=== PATIENT | female | born 1970 | race Caucasian/White ===

== ENCOUNTER 2019-04-14 09:03 | Outpatient (CLI) | payer BC, MEDICARE, SELFPAY ==
--- NOTE | ~2019-04-14 | MM_ITS ---
EXAMINATION: MM screening reid BI w benito HISTORY: Screening mammogram TECHNIQUE: Craniocaudal and mediolateral oblique 3-D tomosynthesis images were obtained and synthetic 2-D images were generated. CAD analysis was submitted and interpreted. COMPARISON: No prior mammogram is available for comparison at this institution. BREAST PARENCHYMAL COMPOSITION: The breasts are almost entirely fatty. FINDINGS: There is no evidence of suspicious mass, calcification, or architectural distortion to sugg est malignancy in either breast. IMPRESSION: 1. No mammographic evidence of malignancy. 2. Recommend routine screening mammography in one year. BI-RADS Category 1: Negative Reviewed, dictated and finalized at location A. TER SKI EDGE
== END 2019-04-14 09:04 | disposition home or self-care (01) ==
PROVIDERS: PCP Internal Medicine; Visit Provider Obstetrics & Gynecology
DX: Z12.31 Encounter for screening mammogram for malignant neoplasm of breast (principal)
CPT/HCPCS: 77063; 77067

== ENCOUNTER 2021-04-05 12:24 | Outpatient (CLI) | payer BC, MEDICARE, SELFPAY ==
--- NOTE | 2021-04-05 | ECHO_ITS ---
Patient Info Name: Luiza Sumner Age: 50 years : 1970 Gender: Female Ht: 62 in Wt: 375 lbs BSA: 2.86 m2 HR: 78 bpm BP: 142 / 90 mmHg Heart Rhythm: Sinus Rhythm Technical Quality: Poor, Fair Exam Date: 04/05/2021 1:09 PM Exam Location: [facility] Patient Status: Outpatient Admit Date: 04/05/2021 Staff Ordering Physician: Daniella, Betsy LOWE [employer] Boiler: Christi Reynoso RDCS Attending Provider: Daniella, Betsy LOWE Exam Type: CA echo doppler color flow Study Info Indications R06.09 - Other forms of dyspnea Complete two-dimensional, color flow and Doppler transthoracic echocardiogram is performed. Strain analysis performed. Summary 1. Complete two-dimensional, color flow and Doppler transthoracic echocardiogram is performed. 2. Strain analysis performed. 3. Left ventricular chamber dimension is normal. 4. Left ventricular systolic function is normal, estimated at 65-70%. 5. There is mildly increased left ventricular wall thickness. 6. The left ventricular diastolic function is grade II diastolic dysfunction. 7. Global longitudinal strain is abnormal at -15 %. 8. Left atrial chamber dimension is mildly enlarged. 9. There is mild mitral valve regurgitation. 10. There is mild tricuspid valve regurgitation. 11. Mild pulmonary hypertension, estimated pulmonary arterial systolic pressure is 44 mmHg. Left Ventricle Left ventricular chamber dimension is normal. Left ventricular systolic function is normal, estimated at 65-70%. There is mildly increased left ventricular wall thickness. The left ventricular diastolic function is grade II diastolic dysfunction. Global longitudinal strain is abnormal at -15 %. Right Ventricle Right ventricular chamber dimension is normal. Right ventricular systolic function is normal. Left Atria Left atrial chamber dimension is mildly enlarged. Right Atria Right atrial chamber dimension is normal. Atrial Septum Intact interatrial septum visualized by color flow imaging. Aortic Valve The aortic valve is probable trileaflet. There is no aortic valve stenosis. There is trace aortic valve regurgitation. Pulmonic Valve The pulmonic valve is normal. There is no pulmonic valve stenosis. There is trace pulmonic regurgitation. Mitral Valve The mitral valve has normal leaflets. There is no mitral valve stenosis. There is mild mitral valve regurgitation. Tricuspid Valve The tricuspid valve leaflets are normal. There is no significant tricuspid valve stenosis. There is mild tricuspid valve regurgitation. Mild pulmonary hypertension, estimated pulmonary arterial systolic pressure is 44 mmHg. Pericardium/Pleural The pericardium appears normal. There is no pericardial effusion. Inferior Vena Cava Normal inferior vena cava with >50% collapse upon inspiration consistent with normal right atrial pressure, 10 mmHg. Aorta The aortic root size at the sinus of Valsalva is normal. Left Ventricular Outflow Tract Name Value Normal LVOT 2D LVOT Diameter 1.9 cm LVOT Doppler LVOT Peak Gradient 6 mmHg
--- NOTE | 2021-04-05 14:32 | PCRCNOTE ---
PT DECLINED 6 MINUTE WALK, DR MARRERO'S OFFICE NOTIFIED.
--- NOTE | 2021-04-05 17:08 | WPDPFTINT ---
PFT Procedure Performed PFT Procedure Performed Spirometry with Pre/Post Bronchodilator Plethysmography (Lung Vol) Diffusing Cap (DLCO) Flow Vol Loop PFT Interpretation This is a pulmonary function test with pre and post-bronchodilator spirometry, plethysmography and diffusing capacity. The test was performed and results interpreted in accordance with the 2019 and 2005 ATS/ERS Task Force guidelines respectively using the Global Lung Function Initiative-2012 reference equations. Patient demonstrated good effort and cooperation. Reproducibility criteria were met. The quality of the pre bronchodilator spirometry maneuver was Grade A and post bronchodilator spirometry maneuver was Grade A. Findings: Spirometry: The contour the inspiratory and expiratory flow tracing are normal. The pre bronchodilator FVC is 2.48 L, 79% predicted. The pre bronchodilator FEV1 is 1.85 L, 73% predicted. The FEV1: FVC ratio 75%. The post bronchodilator FVC is 2.56 L, representing 3% increase. The post bronchodilator FEV1 is 1.91 L, representing a 3% increase. The post bronchodilator FEV1: FVC ratio 75%. Plethysmography: The total lung capacity is 3.49 L, 74% predicted. Functional residual capacity is 1.66 L, 63% predicted. The residual volume is 1.02 L, 59% predicted. Diffusing capacity: The diffusing capacity unadjusted for hemoglobin is 17.7, 82% predicted. The diffusing capacity adjusted for alveolar volume is 5.21, 112% predicted. Impression: There is a mild restrictive ventilatory abnormality. The spirometry is normal without evidence of an obstructive abnormality. There is no significant improvement after inhaling a single dose of albuterol. The diffusing capacity is normal. There are no prior studies for comparison
== END 2021-04-05 12:25 | disposition home or self-care (01) ==
PROVIDERS: PCP Internal Medicine; Visit Provider Nurse Practitioner
DX: J45.909 Unspecified asthma, uncomplicated (principal); R06.09 Other forms of dyspnea; I34.0 Nonrheumatic mitral (valve) insufficiency; I36.1 Nonrheumatic tricuspid (valve) insufficiency
CPT/HCPCS: 93306; 94060; 94726; 94729

== ENCOUNTER 2021-08-23 10:50 | Emergency (ER) | payer BC, MEDICARE, SELFPAY ==
--- NOTE | ~2021-08-23 | XR_ITS ---
XR knee RT min 4V 08/23/2021 11:19 Indication: Right knee pain Procedure: 4 views right knee Comparison: No prior studies for comparison. Findings: There is moderate-severe tricompartment osteoarthritis of the right knee. No fracture or tr aumatic malalignment. No significant joint effusion. No foreign bodies. Impression: 1: No acute fracture. 2: Moderate-severe tricompartment osteoarthritis. Reviewed, dictated and finalized at location A. Impression: 1: No acute fracture. 2: Moderate-severe tricompartment osteoarthritis.
[2021-08-23 10:53] VITALS: BP 146/62; PULSE 94; RESP 20; TEMP 36.6; O2SAT 97
--- NOTE | 2021-08-23 11:10 | PC.NURSE ---
Patient off unit to Radiology
--- NOTE | 2021-08-23 12:00 | PC.NURSE ---
EDP at bedside to assess pt.
--- NOTE | 2021-08-23 12:15 | ED.LOWEXIN ---
HPI - Extremity Injury (Lower) General Chief Complaint: Extremity Injury, Lower Stated Complaint: right knee pain Time Seen by Provider: 08/23/21 11:19 History of Present Illness HPI Narrative: 50-year-old female presents to the emergency room with right knee pain. Patient states that she has been experiencing a stinging sensation to the outside of her left knee. Patient states the pain started when she was in the pool. Pain is aggravated by ambulation and palpation. Patient believes that she may have twisted her knee at some point. States Tylenol and ibuprofen and gabapentin are not alleviating her symptoms. Related Data Allergies Allergy/AdvReac Type Severity Reaction Status Date / Time lisinopril Allergy Mild Cough Verified 08/23/21 12:11 Penicillins Allergy Mild Hives / Unverified 08/23/21 12:11 Red Face Review of Systems Review of Systems: CONSTITUTIONAL: Denies fever, chills, or sweats. EYES: Denies visual changes, redness, or discharge. ENT: Denies rhinorrhea, congestion, sore throat, or otalgia. CARDIOVASCULAR: Denies chest pain, palpitations, or edema. RESPIRATORY: Denies cough or dyspnea. GASTROINTESTINAL: Denies abdominal pain, nausea, vomiting, or diarrhea. GENITOURINARY: Denies dysuria or hematuria. SKIN: Denies rash or itching. MUSCULOSKELETAL: Reports right knee pain NEUROLOGIC: Denies headache, numbness, dizziness, or weakness. PSYCHIATRIC: Denies anxiety or depression. Exam Narrative: GENERAL: Well-appearing, well-nourished, no physical limitations, and in no acute distress. HEAD: Normocephalic, atraumatic. EYES: Conjunctivae normal, PERRLA and EOMI. CHEST: Clear to auscultation. No respiratory distress. No wheezes rales or rhonchi. No tenderness. HEART: Regular rate and rhythm. No murmur heard. Normal peripheral pulses. ABDOMEN: Soft, nontender, morbidly obese, normal active bowel sounds. : Normal external male/female exam. BACK: No CVA tenderness; No cervical/thoracic/lumbar tenderness, step-offs, bony abnormality; FROM EXTREMITIES: Right knee: No obvious bony abnormality, no patellar tracking, full range of motion, no joint laxity, Mikie's test is negative, tenderness to the lateral surface with no obvious soft tissue swelling SKIN: Warm, dry, no rash. No noted wounds NEURO: No focal deficits. Alert and oriented x3. MAEW. CN's II-XI intact bilaterally, antalgic gait PSYCH: Cooperative. Normal mood and affect. Course Vital Signs Vital signs: Vital Signs Temperature 36.6 C 08/23/21 10:53 Pulse Rate 94 08/23/21 10:53 Respiratory Rate 20 08/23/21 10:53 Blood Pressure 146/62 H 08/23/21 10:53 Pulse Oximetry 97 08/23/21 10:53 Oxygen Delivery Room Air 08/23/21 10:53 Temperature 36.6 C 08/23/21 10:53 Pulse Rate 94 08/23/21 10:53 Respiratory Rate 20 08/23/21 10:53 Blood Pressure 146/62 H 08/23/21 10:53 Pulse Oximetry 97 08/23/21 10:53 Oxygen Delivery Room Air 08/23/21 10:53 Discharge Plan Discharge Clinical Impression: Acute internal derangement of knee Patient Disposition: Home, Self-Care Condition: Stable Instructions: Antibiotic Form Prescriptions: New tramadol 50 mg tablet 50 mg PO Q6H PRN (Reason: pain) Qty: 20 0RF Follow-up/Referrals: Lyndon,Melvin Davis MD [Primary Care Provider] - Johann Almodovar MD [Physician] - Time of Disposition: 12:15
== END 2021-08-23 12:45 | disposition home or self-care (01) ==
PROVIDERS: Emergency Provider Nurse Practitioner Family; PCP Internal Medicine
DX: M23.91 Unspecified internal derangement of right knee (principal)
CPT/HCPCS: 73564; 99283

== ENCOUNTER 2022-08-13 07:13 | Outpatient (CLI) | payer BC, MEDICARE, SELFPAY ==
--- NOTE | ~2022-08-13 | US_ITS ---
US abdomen complete EXAMINATION: US Abdomen Complete INDICATION: Elevated liver function tests. PROCEDURE: Realtime High Resolution abdomen ultrasound. COMPARISON: No prior studies for comparison FINDINGS: Gallbladder surgically absent. Common bile duct measures 7 mm. Liver echotexture is increased, consistent with fatty infiltration.. Pancreas within normal limits. Pancreatic tail is obscured by bowel gas. Spleen is unremarkeable. Renal echotexture is within norm al limits bilaterally without hydronephrosis, contour deforming mass or renal stone. Right kidney anuj sures 10.7 cm. Left kidney measures 11.7 cm. Visualized aspects of the aorta and IVC are within normal limits. Portal vein is patent. No sonograph ic Gtz's sign indicated by the technologist. IMPRESSION: 1: Hepatic steatosis. Reviewed, dictated and finalized at location L. IMPRESSION: 1: Hepatic steatosis.
== END 2022-08-13 07:14 | disposition home or self-care (01) ==
PROVIDERS: PCP Family Medicine; Visit Provider Family Medicine
DX: R74.01 Elevation of levels of liver transaminase levels (principal); K76.0 Fatty (change of) liver, not elsewhere classified
CPT/HCPCS: 76700

== ENCOUNTER 2022-09-12 07:40 | Emergency (ER) | payer BC, MEDICARE, SELFPAY ==
--- NOTE | ~2022-09-12 | CT_ITS ---
EXAMINATION: CT abdomen pelvis w con DATE: 09/12/2022 09:09 INDICATION: Right upper quadrant abdominal pain, nausea and vomiting TECHNIQUE: Computed tomography (CT) of the abdomen and pelvis was performed with 100 CC Omnipaque 350 intravenous contrast. Automated exposure control and iterative reconstruction technique were employe d. Exam dose: 1538.48 mGy-cm total exam DLP. COMPARISON: 08/13/2022 complete abdominal ultrasound examination CT abdomen FINDINGS: The examination is technically limited due to morbid obesity. The lung bases are clear. Cardiomegaly. No pericardial or pleural effusion. There is diffuse hepatic steatosis. No hepatic space-occupying mass lesion is evident. Status post cholecystectomy. No bile duct or pancreatic duct dilatation. No pancreatic mass lesion or calcification is evident. Mild splenomegaly. Normal morphology of the adrenal glands. No renal mass lesion is detected. No filling defect of the collecting structures of the kidneys is no lashell. No hydroureteronephrosis. The urinary bladder appears unremarkable. Status post hysterectomy. Normal caliber of the abdominal aorta. No intraperitoneal or retroperitoneal or pelvic mass lesion or adenopathy or ascites. No bowel obstruction, bowel wall thickening, pneumatosis or intraperitoneal free air is evident. Diffuse idiopathic skeletal hyperostosis of the thoracic spine. Degenerative disc disease is noted pa rticularly at L5-S1. No apparent suspicious osteolytic or osteoblastic lesions of the included skelet on are noted. IMPRESSION: Hepatic steatosis Status post cholecystectomy Status post hysterectomy Reviewed, dictated and finalized at Location A. Reviewed, dictated and finalized at location L.
[2022-09-12 08:02] VITALS: BP 159/82; PULSE 102; RESP 18; TEMP 36.8; O2SAT 100
[2022-09-12 08:09] LABS: Basophils Percent Auto 0.3 % (0.2-1.2); Eosinophils Absolute Auto 0.2 K/mm3 (0-0.3); Eosinophils Percent Auto 1.7 % (0-4.4); Hematocrit 42.3 % (37.0-47.0); Hemoglobin 13.5 g/dL (12.0-15.0); Immature Granulocyte Absolute 0.03 K/mm3 (0.00-0.031); Immature Granulocyte Percent A 0.3 % (0-0.5); Lymphocytes Absolute Auto 1.47 K/mm3 (0.9-3.2); Lymphocytes Percent Auto 14.6 % (18.3-44.2); Mean Corpuscular HGB Conc 31.9 g/dl (32-36); Mean Corpuscular Hemoglobin 27.2 pg (26-34); Mean Corpuscular Volume 85.3 fl (80-100); Mean Platelet Volume 10.2 fl (7.4-10.4); Monocytes Absolute Auto 0.7 K/mm3 (0.1-0.6); Neutrophils Absolute Auto 7.7 K/mm3 (1.3-6.7); Neutrophils Percent Auto 76.1 % (45.5-73.1); Platelet Count Result 163 k/mm3 (150-375); Red Blood Count 4.96 M/mm3 (4.2-5.4); Red Cell Distribution Width 14.8 % (11.5-14.5); White Blood Count 10.1 K/mm3 (4.5-10.0)
[2022-09-12 08:21] LABS: Alanine Aminotransferase 45 U/L (6-35); Albumin Level 4.4 g/dL (3.5-5.1); Alkaline Phosphatase 137 U/L (38-126); Anion Gap 10 mmol/L (8-16); Aspartate Amino Transferase 32 U/L (14-36); Bilirubin,Total 0.8 mg/dL (0.2-1.3); Blood Urea Nitrogen 14 mg/dL (7-17); Calcium 9.4 mg/dL (8.4-10.2); Carbon Dioxide 30 mmol/L (22-30); Chloride 98 mmol/L (98-107); Estimated CRCL calculation 144 ml/min; Estimated Glomerular Filt Rate > 60; Glucose 147 mg/dL (65-110); Lipase 313 U/L (23-300); Potassium 4.3 mmol/L (3.4-5.0); Sodium 138 mmol/L (137-145)
--- NOTE | 2022-09-12 08:24 | ED.ABDPAIN ---
HPI - Abdominal Pain General Chief Complaint: Abdominal Pain Stated Complaint: abd pain Time Seen by Provider: 09/12/22 07:45 History of Present Illness HPI narrative: Patient reports 3 days of pain to epigastric/right upper quadrant, she has a history of lap dale, hysterectomy, and recent ultrasound her doctor ordered for abnormal LFTs. She also feels like she has difficulty urinating. Is endorsing some chills and nausea. No focal numbness or weakness anywhere. Related Data Allergies Allergy/AdvReac Type Severity Reaction Status Date / Time lisinopril Allergy Mild Cough Verified 09/12/22 07:44 Penicillins Allergy Mild Hives / Verified 09/12/22 07:44 Red Face Review of Systems Review of Systems: CONST: No fever. HEENT: No sore throat C/V: No chest pain RESP: No cough GI: Reports abdominal pain, nausea : Urinary urgency M/S: No joint pain. SKIN: No rash. NEURO: [No headache or focal numbness or weakness] PSYCH: [No depression] Exam Narrative: EXAMINATION OF ORGAN SYSTEMS/BODY AREAS: Constitutional: Vital signs per nursing GENERAL:[No acute distress, non-toxic appearing.] HEAD: Normal with no signs of head trauma. EYES: EOMI, conjunctiva normal ENT: Hearing grossly intact LUNGS: Nonlabored breathing. HEART: [Regular rate and rhythm] ABD: [Soft], minimally [tender to deep palpation] RUQ EXT: Normal range of motion SKIN: [No rashes or lesions.] NEURO: [Alert and oriented x 3. No gross focal sensory or strength deficits.] PSYCH: Normal affect Course Vital Signs Vital signs: Vital Signs Temperature 98.2 F 09/12/22 08:02 Pulse Rate 102 H 09/12/22 08:02 Respiratory Rate 18 09/12/22 08:02 Blood Pressure 159/82 H 09/12/22 08:02 Pulse Oximetry 100 09/12/22 08:02 Temperature 98.2 F 09/12/22 08:02 Pulse Rate 102 H 09/12/22 08:02 Respiratory Rate 18 09/12/22 08:02 Blood Pressure 159/82 H 09/12/22 08:02 Pulse Oximetry 100 09/12/22 08:02 MDM - Abdominal Pain MDM Narrative Medical decision making narrative: 51-year-old female presenting with right abdominal/flank pain and dysuria for 3 days, vital signs initially slightly tachycardic, on exam she does appear slightly uncomfortable with some tenderness to the right flank/UQ, labs notable for very mildly elevated white count and UA consistent with UTI. Patient started on ceftriaxone, urine culture sent, patient states she is feeling better and is agreeable to going home with Bactrim and follow-up with her primary care doctor. Return precautions are discussed. Lab Data 09/12/22 08:04 09/12/22 08:04 Labs: Lab Results 09/12/22 09/12/22 Range/Units 08:04 08:44 WBC 10.1 H (4.5-10.0) K/mm3 RBC 4.96 (4.2-5.4) M/mm3 Hgb 13.5 (12.0-15.0) g/dL Hct 42.3 (37.0-47.0) % MCV 85.3 (80-100) fl MCH 27.2 (26-34) pg MCHC 31.9 L (32-36) g/dl RDW 14.8 H (11.5-14.5) % Plt Count 163 (150-375) k/mm3 MPV 10.2 (7.4-10.4) fl Immature Gran % (Auto) 0.3 (0-0.5) % Neut % (Auto) 76.1 H (45.5-73.1) % Lymph % (Auto) 14.6 L (18.3-44.2) % [place] % (Auto) 7.0 (2.6-8.5) % Eos % (Auto) 1.7 (0-4.4) % Baso % (Auto) 0.3 (0.2-1.2) % Lymph # (Auto) 1.47 (0.9-3.2) K/mm3 [place] # (Auto) 0.7 H (0.1-0.6) K/mm3 Eos # (Auto) 0.2 (0-0.3) K/mm3 Baso # (Auto) 0.0 (0.0-0.1) K/mm3 Abs Immat Gran (auto) 0.03 (0.00-0.031) K/mm3 Absolute Neuts (auto) 7.7 H (1.3-6.7) K/mm3 Absolute Nucleated RBC 0.0 (0.0-0.012) K/mm3 Nucleated RBC % 0.0 (0.0-0.2) % Sodium 138 (137-145) mmol/L Potassium 4.3 (3.4-5.0) mmol/L Chloride 98 (98-107) mmol/L Carbon Dioxide 30 (22-30) mmol/L Anion Gap 10 (8-16) mmol/L BUN 14 (7-17) mg/dL Creatinine 0.60 L (0.7-1.0) mg/dL Estim Creat Clear Calc 144 ml/min Estimated GFR > 60 (59 - ) Glucose 147 H (65-110) mg/dL Calcium 9.4 (8.4-10.2) mg/dL Total Bilirubin 0.8 (0.2-
[2022-09-12 08:52] LABS: Appearance Urine Cloudy (Clear); Bacteria Urine 1+ /hpf; Bilirubin Urine Negative (Negative); Blood Urine Negative (Negative); Color Urine Yellow (Yellow); Glucose Urine UA Negative (Negative); Ketones Urine Negative (Negative); Leukocyte Esterase Ur 3+ LEU/UL (Negative); Nitrate Urine Negative (Negative); Non Pathogenic Casts 0-2; Protein Urine Negative (Negative); RBC Urine 0-2 /hpf (0-2); Squamous Epithelial Cell Urine Moderate /hpf (Few); Urobilinogen Urine 0.2 mg/dL (<2.0); WBC Urine 21-50 /hpf
[2022-09-12 09:16] LABS: Add Urine Microscopic? YES
[2022-09-12] MEDS: MORPHINE SULFATE (*CRX) 4 MG/ML INJ IV PUSH (09:26)
[2022-09-12] MEDS: ONDANSETRON INJ 4 MG/2 ML VIAL IV PUSH (09:26)
[2022-09-12] MEDS: cefTRIAXone 2 GM/NS 100 ML 2 GM/100 ML BAG IVPB (09:26)
[2022-09-12 11:25] VITALS: BP 162/95; PULSE 93; RESP 16; O2SAT 96
== END 2022-09-12 11:22 | disposition home or self-care (01) ==
PROVIDERS: Emergency Provider Emergency Medicine; PCP Family Medicine
DX: N12 Tubulo-interstitial nephritis, not specified as acute or chronic (principal); Z90.710 Acquired absence of both cervix and uterus; Z90.49 Acquired absence of other specified parts of digestive tract
CPT/HCPCS: 36415; 74177; 80053; 81001; 83690; 85025; 87086; 87088; 96365; 96366; 96375; 99284; J0696; J2270; J2405; Q9967

== ENCOUNTER 2022-11-27 17:47 | Emergency (ER) | payer BC, MEDICARE, SELFPAY ==
--- NOTE | ~2022-11-27 | CT_ITS ---
EXAMINATION: CT abdomen pelvis wo con DATE: 11/27/2022 23:47 INDICATION: flank pain, hx kidney stones TECHNIQUE: Computed tomography (CT) of the abdomen and pelvis was performed without intravenous contr ast. Automated exposure control and iterative reconstruction technique were employed. The dose-length product was 1808.12 mGy-cm. COMPARISON: 09/12/2022. FINDINGS: Examination limited by quantum mottle from body habitus. Lower thorax: Unremarkable Liver: Enlarged and fatty infiltrated. Biliary/Gallbladder: Gallbladder is absent. No bile duct dilation. Pancreas: No mass or duct dilation. Spleen: Normal. Adrenals:No mass. Kidneys: No suspicious mass, obstructing stone, or hydronephrosis. GI tract: No small or large bowel dilation. Normal appendix. Mesentery/Peritoneum: No ascites, mass, or free air. Retroperitoneum: No mass. Pelvis: Absent uterus. Normal urinary bladder.. Soft Tissues: Soft tissues and body wall unremarkable. Bones: No acute osseous finding. IMPRESSION: Hepatomegaly and steatosis. Otherwise unremarkable CT abdomen and pelvis findings. Reviewed, dictated and finalized at location K.
[2022-11-27 18:26] VITALS: BP 152/79; PULSE 93; RESP 16; TEMP 36.4; O2SAT 99
[2022-11-27 18:51] LABS: Appearance Urine Clear (Clear); Bilirubin Urine Negative (Negative); Blood Urine Negative (Negative); Color Urine Yellow (Yellow); Glucose Urine UA Negative (Negative); Ketones Urine Negative (Negative); Leukocyte Esterase Ur Negative LEU/UL (Negative); Nitrate Urine Negative (Negative); Protein Urine Negative (Negative); Specific Grav Ur 1.026 (1.001-1.035); Urobilinogen Urine 0.2 mg/dL (<2.0)
[2022-11-27 19:34] LABS: Add Urine Microscopic? NO
--- NOTE | 2022-11-27 22:41 | PC.NURSE ---
Patient describes pain location as left back underneath ribcage down to hip. States earlier today it was hard to walk/lead with left leg. Denies any new urinary symptoms.
--- NOTE | 2022-11-27 23:25 | ED.BACK ---
HPI - Back Pain/Injury General Chief Complaint: Back Pain/Injury Stated Complaint: Back pain Time Seen by Provider: 11/27/22 22:05 Source: patient Mode of arrival: ambulatory Limitations: no limitations History of Present Illness HPI Narrative: This is a 52-year-old female that presents to the emergency department for left-sided back pain. Present over the last couple of days. Reports little relief with her home pain medications. Reports history of kidney stones and was concerned she may have 1 which prompted her to be seen. Her pain is worse with movement and relieved with rest. Denies fevers, dysuria, or hematuria. Related Data Allergies Allergy/AdvReac Type Severity Reaction Status Date / Time lisinopril Allergy Mild Cough Verified 09/12/22 07:44 Penicillins Allergy Mild Hives / Verified 09/12/22 07:44 Red Face Review of Systems Review of Systems: CONSTITUTIONAL: Denies fever GASTROINTESTINAL: Denies abdominal pain, nausea, vomiting GENITOURINARY: Denies dysuria or hematuria. MUSCULOSKELETAL: Reports back pain, joint pain, and myalgia. All systems reviewed & are unremarkable except as noted in HPI and below [facility] Past Medical History Medical History (Updated 11/28/22 @ 00:01 by Betsy Thompson PA-C) History of depression Social History Social History (Updated 11/27/22 @ 23:26 by Betsy Thompson PA-C) Smoking status: Current some day smoker Exam Narrative: GENERAL: Well-appearing, obese, and in no acute distress. HEAD: Normocephalic, atraumatic. EYES: EOMI. CHEST: Clear to auscultation. No respiratory distress. No wheezes rales or rhonchi HEART: Regular rate and rhythm. No murmur heard. Normal peripheral pulses. ABDOMEN: Soft, nontender, nondistended, normal active bowel sounds. BACK: No midline spinal tenderness EXTREMITIES: Normal range of motion. No edema. Normal strength SKIN: Warm, dry, no rash. NEURO: No focal deficits. Alert and oriented x3. PSYCH: Normal mood and affect Course Course Emergency Course: Patient updated on work-up and agrees with plan of care Vital Signs Vital signs: Vital Signs Temperature 97.5 F L 11/27/22 18:26 Pulse Rate 93 11/27/22 18:26 Respiratory Rate 16 11/27/22 18:26 Blood Pressure 152/79 H 10/04/23 18:26 Pulse Oximetry 99 11/27/22 18:26 Oxygen Delivery Room Air 11/27/22 18:26 Temperature 97.5 F L 11/27/22 18:26 Pulse Rate 93 11/27/22 18:26 Respiratory Rate 16 11/27/22 18:26 Blood Pressure 152/79 H 11/27/22 18:26 Pulse Oximetry 99 11/27/22 18:26 Oxygen Delivery Room Air 11/27/22 18:26 MDM - Back Pain/Injury MDM Narrative Medical decision making narrative: Patient presents to the emergency department for left flank pain. Ongoing over the last couple of days. No recent injury or trauma. She is neurologically intact. Reports history of kidney stones, was concerned she may have 1. Her urine is normal. CT scan of the abdomen and pelvis is without acute findings. Her pain does seem to be more musculoskeletal in nature. Instructed to continue to rest, ice and take [id number] pain medication as needed. She does have a muscle relaxer at home. We will trial a steroid taper. She is to follow-up with primary care provider. She was given warnings to return to the ER Differential Diagnosis Differential diagnosis: Likely strain of lumbar region and renal colic Lab Data Attestation: I reviewed the patient's lab results. Labs: Lab Results 11/27/22 Range/Units 18:42 Urine Color Yellow (Yellow) Urine Appearance Clear (Clear) Urine pH 6.0 (5.0-9.0) Ur Specific [place] 1.026 (1.001-1.035) Urine Protein Negative (Negative) mg/dL Urine Glucose (UA) Negative (Negative) mg/dL Urine Ketones Negative (Negative) mg/dL Ur Blood (Man) Negative (Negative) Urine Nitrate Negative (Negative) Urine Bilirubin Negative (Negative) Urine Urobilinogen 0.2 (<2.0) mg/dL L
[2022-11-27] MEDS: ACETAMINOPHEN 500 MG TABLET 1000 MG PO (23:50)
[2022-11-27] MEDS: diazePAM INJ (*CRX) 10 MG/2 ML SYRINGE 5 MG IM (23:51)
== END 2022-11-28 00:25 | disposition home or self-care (01) ==
PROVIDERS: Preventive Medicine Aerospace Medicine; Emergency Provider Physician Assistant; PCP Family Medicine
DX: M54.50 Low back pain, unspecified (principal); F17.200 Nicotine dependence, unspecified, uncomplicated; R16.0 Hepatomegaly, not elsewhere classified; K76.0 Fatty (change of) liver, not elsewhere classified; Z87.442 Personal history of urinary calculi
CPT/HCPCS: 74176; 81003; 99284; A9270; J3360

== ENCOUNTER 2023-06-23 13:39 | Outpatient (CLI) | payer BC, MEDICARE, SELFPAY ==
--- NOTE | ~2023-06-23 | MM_ITS ---
EXAMINATION: MM screening reid BI w benito HISTORY: Screening mammogram TECHNIQUE: Craniocaudal and mediolateral oblique 3-D tomosynthesis images were obtained and synthetic 2-D images were generated. CAD analysis was submitted and interpreted. COMPARISON: April 14, 2019-bilateral screening mammogram BREAST PARENCHYMAL COMPOSITION: The breasts are almost entirely fatty. FINDINGS: There is no evidence of suspicious mass, calcification, or architectural distortion to sugg est malignancy in either breast. There has been no suspicious interval change. IMPRESSION: 1. No mammographic evidence of malignancy. 2. Recommend routine screening mammography in one year. BI-RADS Category 1: Negative Reviewed, dictated and finalized at location A.
== END 2023-06-23 13:40 ==
LOC: MICIMG 13:41
PROVIDERS: PCP Family Medicine; Visit Provider Family Medicine
DX: Z12.31 Encounter for screening mammogram for malignant neoplasm of breast (principal)
CPT/HCPCS: 77063; 77067

== ENCOUNTER 2023-08-18 16:04 | Emergency (ER) | payer BC, MEDICARE, SELFPAY ==
--- NOTE | ~2023-08-18 | CT_ITS ---
EXAMINATION: CT brain wo con DATE: 08/18/2023 16:46 INDICATION: Headache. Vision change. TECHNIQUE: Computed tomography (CT) of the head was performed without intravenous contrast. The mA wa s adjusted according to patient size. Iterative reconstruction technique was employed. The dose-lengt h product was 605.33 mGy-cm. COMPARISON: None FINDINGS: There is no intracranial hemorrhage, acute infarction, or abnormal intracranial mass lesion . The ventricles are normal in size. There is mild mucosal thickening in the ethmoid sinuses. The orb its are normal. The mastoid air cells are normal. IMPRESSION: 1. Normal brain. Reviewed, dictated and finalized at location A. IMPRESSION: 1. Normal brain.
--- NOTE | ~2023-08-18 | XR_ITS ---
EXAMINATION: XR chest 2V DATE: 08/18/2023 16:53 INDICATION: Chest pain. TECHNIQUE: Frontal and lateral views of the chest were obtained. COMPARISON: Chest 2 views 07/05/2017 FINDINGS: There is no pneumonia, pleural effusion, or pneumothorax. The heart size is normal. IMPRESSION: 1. No acute cardiopulmonary disease. Reviewed, dictated and finalized at location A.
--- NOTE | 2023-08-18 16:07 | ECG_ITS ---
Test Date: 2023-08-18 16:16:10 Measurements Intervals Hawkins Rate: 97 P: 52 HI: 186 QRS: -21 QRSD: 67 T: 43 QT: 308 QTc: 392 Interpretive Statements SINUS RHYTHM LOW QRS VOLTAGE IN PRECORDIAL LEADS [QRS DEFLECTION < 1.0 mV IN CHEST LEADS] INFERIOR MYOCARDIAL INFARCTION , PROBABLY OLD [40+ ms Q WAVE AND/OR ST/T ABNORMALITY IN II/aVF] No previous ECG available for comparison Electronically Signed On 08-19-2023 13:24:21 CDT by Dony Palacio M.D.
[2023-08-18 16:09] VITALS: BP 176/91; PULSE 99; RESP 18; TEMP 36.3; O2SAT 99
--- NOTE | 2023-08-18 16:23 | ED.CHESTPAIN ---
HPI - Chest Pain General Chief Complaint: Chest Pain <LIEN Ambrocio Last Filed: 08/18/23 16:32> Stated Complaint: chest tightness, body is trembeling N/V <LIEN Ambrocio Last Filed: 08/18/23 16:32> Time Seen by Provider: 08/18/23 16:24 <LIEN Ambrocio Last Filed: 08/18/23 16:32> Focused HPI: Patient is a 52 y/o female, with PMH of CVA in 2016, who presents to the ED with c/o CP, body trembling. Patient reports she began feel shaky and tremulous throughout her body after drinking coffee this morning. She then states her hands became numb and she developed chest tightness and nausea. She thought she was having anxiety and took one of her home Xanax. She denied improvement after taking the xanax, but states the chest tightness is resolved currently. Denied any vomiting. Patient also reports R sided BUSTILLOS, generalized weakness, blurry vision. Denies difficulty speaking, aphasia, confusion, focal numbness or weakness. Patient states she just wants to make sure she is not having another stroke. GENERAL: Anxious-appearing, morbidly obese with BMI of 64.1, and in no acute distress. HEAD: Normocephalic, atraumatic. CHEST: Clear to auscultation. ?No respiratory distress. HEART: Regular rate and rhythm.? NEURO: ?Alert and oriented x3. Strength 5/5 in upper and lower extremities bilaterally. Equal outreach assistant strength bilaterally. No pronator drift. Sensation intact. bricklayer's assistant 2-12 intact. Patient screened in triage and initial orders placed.? ?Additional care and disposition to be based upon?diagnostic testing and treatment. <LIEN Ambrocio Last Filed: 08/18/23 16:32> Source: patient <LIEN Ambrocio Filed: 08/18/23 16:32> Mode of arrival: ambulatory <LIEN Ambrocio Filed: 08/18/23 16:32> Limitations: no limitations <LIEN Ambrocio Filed: 08/18/23 16:32> History of Present Illness HPI narrative: Concur with the above with the following additions: Patient states she is having to use a walker for leg pain although not currently having leg pain. She recently had a CT abdomen. She is seeing pain management for spinal issues and has been incontinent of urine. She is requesting a neurology referral since the one she was referred to after her stroke doesn't take her insurance. Also doesn't have a bag machine set up operator though she had seen someone briefly after her stroke. Having issues seeing her primary care provider. Currently in a bariatric program and doing physical therapy. She endorses nausea without vomiting. She tried crackers and Sprite. No diarrhea. No SOB. Symptoms of her earlier CVA were vision changes that resolved; no residual deficits. Has a headache, 4 out of 10 in severity. <Laila Jernigan MD - Last Filed: 08/19/23 16:52> Related Data Allergies/Adverse Reactions: Allergies Allergy/AdvReac Type Severity Reaction Status Date / Time lisinopril Allergy Mild Cough Verified 09/12/22 07:44 Penicillins Allergy Mild Hives / Verified 09/12/22 07:44 Red Face <Coby Downs PA-C - Last Filed: 08/18/23 16:32> [facility] Past Medical History Medical History: Medical History Fatty liver History of anxiety History of CVA (cerebrovascular accident) (2016) no deficits History of depression HLD (hyperlipidemia) HTN (hypertension) Morbid obesity with BMI of 60.0-69.9, adult <Coby Downs PA-C - Last Filed: 08/18/23 16:32> Family History Family History: Family History Father Acute myocardial infarction, Onset Age: 57 <LIEN Ambrocio Last Filed: 08/18/23 16:32> Social History Social History: Social History Smoking status: Former smoker Additional smoking assessment comments: Prev
[2023-08-18 16:44] LABS: Basophils Percent Auto 0.6 % (0.2-1.2); Eosinophils Absolute Auto 0.1 K/mm3 (0-0.3); Eosinophils Percent Auto 1.3 % (0-4.4); Hematocrit 41.7 % (37.0-47.0); Hemoglobin 14.1 g/dL (12.0-15.0); Immature Granulocyte Absolute 0.01 K/mm3 (0.00-0.031); Immature Granulocyte Percent A 0.1 % (0-0.5); Lymphocytes Absolute Auto 1.59 K/mm3 (0.9-3.2); Lymphocytes Percent Auto 23.4 % (18.3-44.2); Mean Corpuscular HGB Conc 33.8 g/dl (32-36); Mean Corpuscular Hemoglobin 29.4 pg (26-34); Mean Corpuscular Volume 86.9 fl (80-100); Mean Platelet Volume 10.2 fl (7.4-10.4); Monocytes Absolute Auto 0.5 K/mm3 (0.1-0.6); Monocytes Percent Auto 7.2 % (2.6-8.5); Neutrophils Absolute Auto 4.6 K/mm3 (1.3-6.7); Neutrophils Percent Auto 67.4 % (45.5-73.1); Platelet Count Result 180 k/mm3 (150-375); Red Cell Distribution Width 12.7 % (11.5-14.5); White Blood Count 6.8 K/mm3 (4.5-10.0)
[2023-08-18 16:55] LABS: INR 0.9; Partial Thromboplastin Time 26.2 Seconds (22.3-36.8); Prothrombin Time 12.7 Seconds (11.1-14.7)
[2023-08-18 16:56] LABS: Alanine Aminotransferase 43 U/L (6-35); Albumin Level 4.7 g/dL (3.5-5.1); Alkaline Phosphatase 121 U/L (38-126); Anion Gap 9 mmol/L (4-12); Aspartate Amino Transferase 27 U/L (14-36); Bilirubin,Total 0.5 mg/dL (0.2-1.3); Blood Urea Nitrogen 15 mg/dL (7-17); Carbon Dioxide 30 mmol/L (22-30); Chloride 101 mmol/L (98-107); Estimated CRCL calculation 135 ml/min; Estimated Glomerular Filt Rate > 60; Glucose 115 mg/dL (65-110); Lipase 56 U/L (23-300); Potassium 3.8 mmol/L (3.4-5.0); Sodium 140 mmol/L (137-145)
[2023-08-18 17:09] LABS: Troponin I < 0.012 ng/mL (0.000-0.034)
[2023-08-18] MEDS: ASPIRIN 81 MG CHEWABLE TABLET 324 MG PO (18:30)
[2023-08-18 18:32] VITALS: PULSE 97
[2023-08-18 18:34] VITALS: BP 165/83; PULSE 93; RESP 12; O2SAT 99
--- NOTE | 2023-08-18 19:08 | ECG_ITS ---
Test Date: 2023-08-18 19:36:53 Measurements Intervals [place] Rate: 94 P: 61 PA: 173 QRS: -4 QRSD: 76 T: 29 QT: 333 QTc: 417 Interpretive Statements SINUS RHYTHM LOW QRS VOLTAGE IN PRECORDIAL LEADS [QRS DEFLECTION < 1.0 mV IN CHEST LEADS] Compared to ECG 08/18/2023 16:16:10 Myocardial infarct finding no longer present Electronically Signed On 08-19-2023 13:29:35 CDT by Dony Palacio M.D.
[2023-08-18 19:10] VITALS: BP 154/74; PULSE 97; RESP 13; O2SAT 99
[2023-08-18] MEDS: KETOROLAC 30 MG/ML VIAL (*BKC) IM (19:58)
[2023-08-18 20:04] LABS: Troponin I < 0.012 ng/mL (0.000-0.034)
[2023-08-18 20:15] LABS: Creatine Kinase 63 U/L (30-135); Magnesium 2.1 mg/dL (1.6-2.3)
[2023-08-18 20:25] LABS: Appearance Urine Cloudy (Clear); Bacteria Urine 2+ /hpf; Bilirubin Urine Negative (Negative); Blood Urine Negative (Negative); Color Urine Yellow (Yellow); Glucose Urine UA Negative (Negative); Ketones Urine Negative (Negative); Leukocyte Esterase Ur Negative LEU/UL (Negative); Nitrate Urine Negative (Negative); Non Pathogenic Casts 0-2; Protein Urine Negative (Negative); RBC Urine 0-2 /hpf (0-2); Specific Grav Ur 1.023 (1.001-1.035); Squamous Epithelial Cell Urine Moderate /hpf (Few); Urobilinogen Urine 0.2 mg/dL (<2.0); pH Urine 6.5 (5.0-9.0)
[2023-08-18 20:47] LABS: Add Urine Microscopic? NO
[2023-08-18 20:54] LABS: Influenza A QL RT-PCR Negative (Negative); Influenza B QL RT-PCR Negative (Negative); SARS-CoV-2 RNA PCR Negative (Negative)
[2023-08-18] MEDS: SULFAMETHOXAZOLE/TRIMETHOPRIM 800/160 MG DS TABLET 1 TAB PO (21:07)
[2023-08-18 21:14] VITALS: BP 157/86; PULSE 97; RESP 16; O2SAT 100
== END 2023-08-18 21:16 | disposition home or self-care (01) ==
LOC: ANHED 19:43
PROVIDERS: Emergency Medicine; Emergency Provider Student in an Organized Health Care Education/Training Program; PCP Family Medicine
DX: R07.9 Chest pain, unspecified (principal); N39.0 Urinary tract infection, site not specified; E78.5 Hyperlipidemia, unspecified; I10 Essential (primary) hypertension; Z86.73 Personal history of transient ischemic attack (TIA), and cerebral infarction without residual deficits; Z79.899 Other long term (current) drug therapy; Z87.891 Personal history of nicotine dependence
CPT/HCPCS: 36415; 70450; 71046; 80053; 81003; 82550; 83690; 83735; 84484; 85025; 85610; 85730; 87086; 87088; 87636; 93005; 96372; 99284; A9270; J1885

== ENCOUNTER 2023-12-06 10:35 | Outpatient (CLI) | payer BC, MEDICARE, SELFPAY ==
--- NOTE | ~2023-12-06 | MR_ITS ---
EXAMINATION: MR lumbar spine wo con DATE: 12/06/2023 11:37 INDICATION: Lumbosacral radiculopathy. Low back pain. Bilateral leg pain. TECHNIQUE: Magnetic resonance imaging (MRI) of the lumbar spine was performed without intravenous con trast. Sequences included sagittal T2-weighted FSE, sagittal T2-weighted FS FSE, sagittal T1-weighted FSE, and axial T2-weighted FSE. COMPARISON: None FINDINGS: There is 6 degrees dextrocurvature of thoracolumbar spine. There is mild chronic anterior w edging of T12 vertebral body. There is moderately decreased disc height at L5-S1. The distal spinal c ord signal intensity is normal. The conus medullaris is at T12. The following disc levels are specifi carlos discussed: L1-L2: The disc does not extend beyond the endplate margin. There is moderate right and mild left fac et joint osteoarthritis. There is no neural foraminal stenosis. There is no central canal stenosis. L2-L3: The disc is bulging. There is mild bilateral facet joint osteoarthritis. There is mild left ne ural foraminal stenosis. There is mild central canal stenosis. L3-L4: There is a left foraminal protrusion. There is severe bilateral facet joint osteoarthritis. Th ere is mild left neural foraminal stenosis. There is no central canal stenosis. L4-L5: The disc does not extend beyond the endplate margin. There is severe bilateral facet joint ost eoarthritis. There is mild left neural foraminal stenosis. There is no central canal stenosis. L5-S1: The disc is bulging and has an annular fissure. There is severe right and mild left facet join t osteoarthritis. There is moderate bilateral neural foraminal stenosis. There is mild central canal stenosis. IMPRESSION: 1. Moderate spondylosis at L5-S1 and mild spondylosis at other levels. Reviewed, dictated and finalized at location A.
== END 2023-12-06 10:36 | disposition home or self-care (01) ==
PROVIDERS: PCP Family Medicine; Visit Provider Psychiatry & Neurology Neurology
DX: M47.27 Other spondylosis with radiculopathy, lumbosacral region (principal)
CPT/HCPCS: 72148

== ENCOUNTER 2024-08-04 09:33 | Emergency (ER) | payer BC, MEDICARE, SELFPAY ==
--- NOTE | ~2024-08-04 | XR_ITS ---
EXAMINATION: XR chest 2V 08/04/2024 11:55 INDICATION: Wrist pain and shortness of breath PROCEDURE: 2 view chest COMPARISON: Comparison to multiple prior studies sequentially, with oldest reviewed study dated 01/25. FINDINGS: The lungs are clear. The cardiomediastinal silhouette is within normal limits. There are no pleural effusions. There is no pneumothorax suspected. IMPRESSION: 1: NO ACUTE CARDIOPULMONARY DISEASE. Reviewed, dictated and finalized at location B.
[2024-08-04 09:42] VITALS: BP 148/82; PULSE 87; RESP 14; TEMP 36.8; O2SAT 100
--- NOTE | 2024-08-04 09:42 | ECG_ITS ---
Test Date: 2024-08-04 09:43:53 Measurements Intervals [place] Rate: 89 P: 53 OK: 171 QRS: -5 QRSD: 85 T: 31 QT: 337 QTc: 412 Interpretive Statements SINUS RHYTHM LOW QRS VOLTAGE IN PRECORDIAL LEADS INFERIOR INFARCT, AGE INDETERMINATE BASELINE ARTIFACT- I, II, III, AVR, AVL, AVF, V1 ABNORMAL ECG Compared to ECG 08/18/2023 19:36:53 No significant changes Electronically Signed On 08-04-2024 18:50:17 CDT by Ishan Greene D.O.
[2024-08-04 09:48] VITALS: PULSE 86
[2024-08-04 10:02] LABS: Basophils Percent Auto 0.5 % (0.2-1.2); Eosinophils Absolute Auto 0.1 K/mm3 (0-0.3); Eosinophils Percent Auto 0.8 % (0-4.4); Hematocrit 42.7 % (37.0-47.0); Hemoglobin 14.1 g/dL (12.0-15.0); Immature Granulocyte Absolute 0.03 K/mm3 (0.00-0.031); Immature Granulocyte Percent A 0.4 % (0-0.5); Lymphocytes Absolute Auto 1.32 K/mm3 (0.9-3.2); Lymphocytes Percent Auto 16.6 % (18.3-44.2); Mean Corpuscular Hemoglobin 28.5 pg (26-34); Mean Corpuscular Volume 86.4 fl (80-100); Mean Platelet Volume 10.2 fl (7.4-10.4); Monocytes Absolute Auto 0.4 K/mm3 (0.1-0.6); Monocytes Percent Auto 5.5 % (2.6-8.5); Neutrophils Absolute Auto 6.1 K/mm3 (1.3-6.7); Neutrophils Percent Auto 76.2 % (45.5-73.1); Platelet Count Result 190 k/mm3 (150-375); Red Blood Count 4.94 M/mm3 (4.2-5.4); Red Cell Distribution Width 13.4 % (11.5-14.5)
--- NOTE | 2024-08-04 10:04 | ED_ITS ---
HPI - SOB/Dyspnea General Chief Complaint: Shortness of Breath/Dyspnea Stated Complaint: SHORT OF BREATH,MULT C/O Time Seen by Provider: 08/04/24 09:40 Source: patient Mode of arrival: ambulatory Limitations: no limitations History of Present Illness HPI Narrative: Patient is a 53 y/o female, with PMH of smoking, CVA, HTN, HLD, anxiety, who presents to the ED with c/o SOB, CP, urinary complaints. Patient reports she has been having exertional dyspnea since yesterday. States she uses a walker for assistance with ambulation is only able to walk 5-6 feet before becoming winded. She states this is new for her. She had difficulty sleeping last night due to shortness of breath, intermittent burning midsternal chest pain, and urinary frequency. Also reports intermittent dizziness, nausea. Denies dysuria, hematuria. Denies vomiting, abdominal pain. Denies fevers. Denies significant pain or swelling in her legs. Denies hx of heart disease. Related Data Home Medications ?Medication ?Instructions ?Recorded ?Confirmed ?Last Taken ?Type acetaminophen 500 mg tablet 500 mg PO Q6H PRN 10/21/23 01/21/24 Unknown History (Acetaminophen Pain Relief) alprazolam 0.5 mg tablet 0.5 mg PO DAILY 10/21/23 01/21/24 Unknown History amlodipine 5 mg tablet 5 mg PO DAILY 10/21/23 01/21/24 Unknown History aspirin 81 mg tablet,delayed 81 mg PO DAILY 10/21/23 01/21/24 Unknown History release atomoxetine 80 mg capsule 80 mg PO DAILY 10/21/23 01/21/24 Unknown History atorvastatin 40 mg tablet 40 mg PO DAILY 10/21/23 01/21/24 Unknown History cyclobenzaprine 10 mg tablet 10 mg PO TID 10/21/23 01/21/24 Unknown History gabapentin 600 mg tablet 600 mg PO BID 10/21/23 01/21/24 Unknown History lamotrigine 200 mg tablet 200 mg PO DAILY 10/21/23 01/21/24 Unknown History losartan 100 mg tablet 100 mg PO DAILY 10/21/23 01/21/24 Unknown History naloxone 4 mg/actuation nasal spray 4 mg intranasal Q2M PRN 10/21/23 01/21/24 Unknown History oxycodone 5 mg capsule 5 mg PO Q8H PRN 10/21/23 01/21/24 Unknown History zolpidem 10 mg tablet 10 mg PO QHS PRN 10/21/23 01/21/24 Unknown History cariprazine 3 mg capsule (Vraylar) 3 mg PO DAILY 01/21/24 01/21/24 Unknown History Allergies Allergy/AdvReac Type Severity Reaction Status Date / Time lisinopril Allergy Mild Cough Verified 08/04/24 09:49 Penicillins Allergy Mild Hives / Verified 08/04/24 09:49 Red Face Review of Systems 2 Review of Systems: All systems reviewed & are unremarkable except as noted in HPI. All systems reviewed & are unremarkable except as noted in HPI and below PMFSH Past Medical History Medical History Peripheral neuropathy Migraine Bilateral carpal tunnel syndrome Chronic lower back pain Lumbosacral radiculopathy HLD (hyperlipidemia) HTN (hypertension) History of CVA (cerebrovascular accident) (2016) no deficits Fatty liver Morbid obesity with BMI of 60.0-69.9, adult History of anxiety History of depression Family History Family History Father Acute myocardial infarction, Onset Age: 57 Social History Social History Smoking status: Former smoker Additional smoking assessment comments: Previously listed as current some day smoker; denies smoking history 07/2023 Do You Feel Safe in your Home?: Yes Lack of Transportation: No Lack of Food: Never True Current Housing: I Have Housing Concerned About Future Housing: No Difficulty Paying Gas/Electric Bills: No Difficulty Paying for Meds: No Currently Unemployed: No Education: High School Diploma/GED Difficulty w/ Childcare or Family Care: No Exam 2 Narrative: GENERAL: Mildly anxious appearing, morbidly obese with BMI of 58.9, non-toxic, in no acute distress. HEAD: Normocephalic, atraumatic. RESPIRATORY: Airway patent, respirations nonlabored. Clear to auscultation bilaterally, no rales, rhonchi, wheezing. No significant focal lung sounds. CARDIOVASCULAR: Regular rate and rhythm without murmurs, rubs, or gallops. ABDOMINAL: Soft, nontender, nondistended. Normoactive BS. MUSCULOSKELETAL: Moves all extremities. No gross deformities. No peripheral edema. SKIN: Warm, dry, normal color. NEURO: A&O X3. Speech clear. Steady gait. No ataxic movements. PSYCHIATRIC: Appropriate mood and affect. Normal interaction. Course Vital Signs Vital signs: Vital Signs Temperature 98.2 F 08/04/24 09:42 Pulse Rate 87 08/04/24 09:42 Respiratory Rate 14 08/04/24 09:42 Blood Pressure 148/82 H 08/04/24 09:42 Pulse Oximetry 100 08/04/24 09:42 Oxygen Delivery Room Air 08/04/24 09:42 Temperature 98.2 F 08/04/24 09:42 Pulse Rate 87 08/04/24 12:44 Respiratory Rate 18 08/04/24 12:44 Blood Pressure 143/80 H 08/04/24 12:44 Pulse Oximetry 97 08/04/24 12:44 Oxygen Delivery Room Air 08/04/24 10:24 MDM - SOB/Dyspnea MDM Narrative Medical decision making narrative: Patient presented to ED with multiple complaints - CP, [place], dizziness, nausea, urinary frequency. VSS upon arrival. Patient somewhat anxious appearing. EKG with NSR, no concerning ST changes. Trop undetectable. Patient reports her chest pain has been ongoing for the last couple of days. Low suspicion for ACS at this time. D-dimer did result within normal range. BNP within normal range. She does not appear fluid overloaded. Chest x-ray is clear. Remainder basic laboratory studies are otherwise unremarkable. UA without signs of infection. Does show many squamous cells, 1+ urine bacteria. Sent for culture. Low suspicion for infection at this time. Offered to perform PVR, however patient reports she is scheduled to see her urologist next week. She will have them perform this procedure. She states she did drink a beverage last night which has artificial sweeteners, which often makes her have to urinate more frequently. She believes this is the reason were her urinary frequency. I discussed overall reassuring workup, low suspicion for ACS. Patient does admit to increased anxiety lately. Advised that anxiety can certainly be contributing to symptoms. Overall feel patient is safe for D/C home at this time. Given strict return precautions. Patient in agreement with plan. Feels comfortable going home. Discharged in stable condition Medical Records Attestation: I reviewed the patient's medical records. Lab Data Attestation: I reviewed the patient's lab results. 08/04/24 09:58 08/04/24 09:58 Labs: Lab Results 08/04/24 08/04/24 Range/Units 09:58 10:22 WBC 8.0 (4.5-10.0) K/mm3 RBC 4.94 (4.2-5.4) M/mm3 Hgb 14.1 (12.0-15.0) g/dL Hct 42.7 (37.0-47.0) % MCV 86.4 (80-100) fl MCH 28.5 (26-34) pg MCHC 33.0 (32-36) g/dl RDW 13.4 (11.5-14.5) % Plt Count 190 (150-375) k/mm3 MPV 10.2 (7.4-10.4) fl Immature Gran % (Auto) 0.4 (0-0.5) % Neut % (Auto) 76.2 H (45.5-73.1) % Lymph % (Auto) 16.6 L (18.3-44.2) % [place] % (Auto) 5.5 (2.6-8.5) % Eos % (Auto) 0.8 (0-4.4) % Baso % (Auto) 0.5 (0.2-1.2) % Lymph # (Auto) 1.32 (0.9-3.2) K/mm3 [place] # (Auto) 0.4 (0.1-0.6) K/mm3 Eos # (Auto) 0.1 (0-0.3) K/mm3 Baso # (Auto) 0.0 (0.0-0.1) K/mm3 Abs Immat Gran (auto) 0.03 (0.00-0.031) K/mm3 Absolute Neuts (auto) 6.1 (1.3-6.7) K/mm3 Absolute Nucleated RBC 0.000 (0.0-0.012) K/mm3 Nucleated RBC % 0.0 (0.0-0.2) % PT 13.0 (11.1-14.7) Seconds INR 1.0 APTT 24.4 (22.3-36.8) Seconds D-Dimer 0.39 (<0.48) ug/mL Sodium 138 (137-145) mmol/L Potassium 4.4 (3.4-5.0) mmol/L Chloride 105 (98-107) mmol/L Carbon Dioxide 26 (22-30) mmol/L Anion Gap 7 (4-12) mmol/L BUN 11 (7-17) mg/dL Creatinine 0.60 L (0.7-1.0) mg/dL Estim Creat Clear Calc 126 ml/min Estimated GFR > 60 (59 - ) Glucose 119 H (65-110) mg/dL Calcium 9.7 (8.4-10.2) mg/dL Total Bilirubin 0.7 (0.2-1.3) mg/dL AST 26 (14-36) U/L ALT 24 (6-35) U/L Alkaline Phosphatase 107 (38-126) U/L Troponin I < 0.012 (0.000-0.034) ng/mL NT-Pro-B Natriuret Pep 212 H (19.9-100) pg/mL Total Protein 7.4 (6.3-8.2) g/dL Albumin 4.4 (3.5-5.1) g/dL Urine Color Yellow (Yellow) Urine Appearance Cloudy H (Clear) Urine pH 7.5 (5.0-9.0) Ur Specific [place] 1.012 (1.001-1.035) Urine Protein Negative (Negative) mg/dL Urine Glucose (UA) Negative (Negative) mg/dL Urine Ketones Negative (Negative) mg/dL Ur Blood (Man) Negative (Negative) Urine Nitrate Negative (Negative) Urine Bilirubin Negative (Negative) Urine Urobilinogen 0.2 (<2.0) mg/dL Leukocyte Esterase Rfl Negative (Negative) [place]/UL Urine RBC 0-2 (0-2) /hpf Urine WBC 0-5 (0-3) /hpf Ur Squamous Epith Cells Many H (Few) /hpf Urine Bacteria 1+ H /hpf Urine Casts 0-2 Imaging Data Attestation: I personally reviewed and interpreted this imaging study as follows: Radiologist's impression: ITS Impressions Chest X-Ray 08/04/24 12:02 IMPRESSION: 1: NO ACUTE CARDIOPULMONARY DISEASE. ECG Data EKG #1: Attestation: I personally reviewed and interpreted this ECG as follows: ECG completion date: 08/04/24 ECG completion time: 09:43 EKG Interpretation: normal rate (89), sinus rhythm and no ST changes Discharge Plan Discharge Clinical Impression: Atypical chest pain, Urinary frequency Dyspnea Qualifiers: Dyspnea type: unspecified Qualified Code(s): R06.00 - Dyspnea, unspecified Patient Disposition: Home Condition: Stable Instructions: Antibiotic Form, Chest Pain (ED), Dyspnea (ED), Urinary Urgency and Frequency (DC) Additional Instructions: Your workup here was reassuring. Recommend follow-up with your primary care doctor, urologist, supervisor opening and picking for further evaluation. Continue to monitor symptoms. Return to the ED if you experience worsening or severe chest pain, shortness of breath, unable to keep down food or drink, persistent pain or swelling in your legs, persistent fevers, difficulty urinating, blood in urine, or any other symptoms of concern. Patient Language: Bulgarian Prescriptions: No Action zolpidem 10 mg tablet 10 mg PO QHS PRN lamotrigine 200 mg tablet 200 mg PO DAILY cyclobenzaprine 10 mg tablet 10 mg PO TID gabapentin 600 mg tablet 600 mg PO BID oxycodone 5 mg capsule 5 mg PO Q8H PRN acetaminophen [Acetaminophen Pain Relief] 500 mg tablet 500 mg PO Q6H PRN naloxone 4 mg/actuation spray,non-aerosol 4 mg intranasal Q2M PRN Rx Instructions: spray 1 dose into ONE nostril; alternate nostrils w each dose until help arrives aspirin 81 mg tablet,delayed release (DR/EC) 81 mg PO DAILY amlodipine 5 mg tablet 5 mg PO DAILY atomoxetine 80 mg capsule 80 mg PO DAILY losartan 100 mg tablet 100 mg PO DAILY atorvastatin 40 mg tablet 40 mg PO DAILY alprazolam 0.5 mg tablet 0.5 mg PO DAILY Vraylar 3 mg capsule 3 mg PO DAILY venlafaxine [Effexor XR] 37.5 mg capsule,extended release 24hr 75 mg PO DAILY Qty: 60 2RF Follow-up/Referrals: PHYSICIAN NOT ON STAFF,NONSTAFF [Primary Care Provider] - Time of Disposition: 12:35 Quality HEART score for chest pain patients History: slightly suspicious ECG: normal Age: > 45 and < 65 years Risk factors: > or = to 3 risk factors of atherosclerotic disease Troponin: < or = to 1x normal limit Heart score: 3
[2024-08-04 10:16] LABS: Partial Thromboplastin Time 24.4 Seconds (22.3-36.8)
[2024-08-04 10:19] LABS: Alanine Aminotransferase 24 U/L (6-35); Albumin Level 4.4 g/dL (3.5-5.1); Alkaline Phosphatase 107 U/L (38-126); Anion Gap 7 mmol/L (4-12); Aspartate Amino Transferase 26 U/L (14-36); Bilirubin,Total 0.7 mg/dL (0.2-1.3); Blood Urea Nitrogen 11 mg/dL (7-17); Calcium 9.7 mg/dL (8.4-10.2); Carbon Dioxide 26 mmol/L (22-30); Chloride 105 mmol/L (98-107); Estimated CRCL calculation 126 ml/min; Estimated Glomerular Filt Rate > 60; Glucose 119 mg/dL (65-110); Potassium 4.4 mmol/L (3.4-5.0); Sodium 138 mmol/L (137-145); Total Protein 7.4 g/dL (6.3-8.2)
[2024-08-04] MEDS: ASPIRIN 81 MG CHEWABLE TABLET 324 MG PO (10:21)
[2024-08-04] MEDS: ONDANSETRON INJ 4 MG/2 ML VIAL IV PUSH (10:21)
[2024-08-04 10:24] VITALS: O2SAT 100
[2024-08-04 10:25] VITALS: BP 136/79; PULSE 90; RESP 18; O2SAT 99
[2024-08-04 10:31] LABS: NT Pro B Type Natriuretic Pept 212 pg/mL (19.9-100); Troponin I < 0.012 ng/mL (0.000-0.034)
--- OUTSIDE RECORDS SUMMARY | 2024-08-04 10:33 | XMS_ITS | Patient Health Record ---
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 Role Phone Dk Cat Unavailable [phone] Bailey Hendricksonnifer Unavailable [phone] Allergies Allergen (clinical drug ingredient) Drug/Non Drug Allergy documented on EMR Reaction Allergy Type Onset Date Status Substance with penicillin structure and antibacterial mechanism of action (substance) Penicillins Unknown Drug Allergy 07/15/2022 Active Reason For Referral No Information Medications Medication SIG (Take, Route, Frequency, Duration) Notes Start Date End Date Status lamoTRIgine 200 MG 1 tablet Oral twice a day for 90 days Active ProAir HFA 108 (90 Base) MCG/ACT Inhalation 06/02/2023 Unknown Vraylar 4.5 MG 1 capsule Orally Onc e a day for 30 days Active Arnuity Ellipta 200 MCG/ACT Inhalation 06/02/2023 Unknown Diclofenac Sodium 75 MG Oral 06/02/2023 Unknown Vraylar 3 MG 1 capsule Orally Onc e a day for 90 days 11/07/2023 Active Cyclobenzaprine HCl 10 MG Oral 06/02/2023 Unknown ALPRAZolam 0.5 MG 1 tablet Oral Twice a day for 30 days As needed 05/10/2024 Active Gabapentin 300 MG Oral 06/02/2023 U nknown Aspirin Adult Low Dose 81 MG 1 tablet Orally Once a day Unknown Zolpidem Tartrate 10 MG 1 tablet at bedtime Oral once a day for 30 days As needed 06/10/2024 09/08/2024 Active ALPRAZolam 0.5 MG 1 tablet Oral Twice a day for 30 days As needed 06/03/2024 Active Losartan Potassium-HCTZ 100-25 MG Oral 06/02/2023 Unknown Rosuvastatin Calcium 40 MG Oral 06/02/2023 Unknown amLODIPine Besylate 5 MG 1 tablet Orally Once a day 10/20/2023 Unknown Atomoxetine HCl 80 mg 1 capsule 30 once daily for 30 days Active Social History Tobacco Use: Social History Observation Description Date Details (start date - stop date) Current some da y smoker 03/27/2024 - NA Sex Assigned At : Social History Observation Description Sex Assigned At Female Tobacco Control (Standard) Question Answer Notes Tobacco use: Current some day smoker When did you start smoking? 03/27/2024 Problems Problem Type SNOMED Code ICD Code Onset Dates Problem Status W/U Status Risk Notes Problem Bipolar affective disorder, currently depressed, moderate (515878235) Bipolar disorder, current episode depressed, moderate (F31.32) Active confirmed Problem Generalized anxiety disorder (72109099) Generalized anxiety disorder (F41.1) 06/02/19 24 Active confirmed Problem Insomnia disorder related to another mental disorder (29894920) Insomnia due to other mental disorder (F51.05) 06/02/19 24 Active confirmed Problem Attention deficit hyperactivity disorder, predominantly inattentive type (87457801) Attention-deficit hyperactivity disorder, predominantly inattentive type (F90.0) Active confirmed Vital Signs Heart Rate 105 /min 09/15/2023 Height-cm 157.48 cm 06/03/2024 Blood pressure diastolic 108 mm Hg 09/15/2023 Weight-kg 163.29 kg 09/15/2023 Height 62.00 in 06/03/2024 Blood pressure systolic 163 mm Hg 09/15/2023 Weight 360.0 lbs 09/15/2023 BMI 65.84 kg/m2 09/15/2023 Encounters Encounter Location Date Provider Diagnosis [facility] [address] [place] [address] 09/15/2023 Dk Cat Generalized anxiety disorder F41.1 ; Attention-deficit hyperactivity disorder, predominantly inattentive type F90.0 ; Insomnia due to other mental disorder F51.05 and Bipolar disorder, current episode depressed, moderate F31.32 [facility] [address] [place] [address] 10/13/2023 Dk Cat [facility] [address] [place] [address] 10/20/2023 Dk Cat Generalized anxiety disorder F41.1 ; Attention-deficit hyperactivity disorder, predominantly inattentive type F90.0 ; Insomnia due to other mental disorder F51.05 and Bipolar disorder, current episode depressed, moderate F31.32 [facility], [facility] [address] [place] [address] 01/20/2024 Dk Cat Generalized anxiety disorder F41.1 ; Attention-deficit hyperactivity disorder, predominantly inattentive type F90.0 ; Insomnia due to other mental disorder F51.05 and Bipolar disorder, current episode depressed, moderate F31.32 [facility], [facility] [address] [place] [address] 06/03/2024 Dk Cat Generalized anxiety disorder F41.1 ; Attention-deficit hyperactivity disorder, predominantly inattentive type F90.0 ; Insomnia due to other mental disorder F51.05 and Bipolar disorder, current episode depressed, moderate F31.32 [facility], [facility] [address] [place] [address] 08/12/2023 Dk Cat [facility], [facility] [address] [place] [address] 11/17/2023 Dk Cat Insomnia due to othe r mental disorder F51.05 [facility], [facility] [address] [place] [address] 11/19/2023 Dk Cat Bipolar disorder, current episode depressed, moderate F31.32 [facility], [facility] [address] [place] [address] 02/03/2024 Dk Cat Generalized anxiety disorder F41.1 [facility], [facility] [address] [place] [address] 08/04/2024 Dk Cat [facility], [facility] [address] [place] [address] 08/14/2023 Dk Cat [facility], [facility] [address] [place] [address] 09/05/2023 Dk Cat [facility], [facility] [address] [place] [address] 10/15/2023 Dk Cat [facility], [facility] [address] [place] [address] 10/21/2023 Dk Cat [facility], [facility] [address] [place] [address] 10/22/2023 Dk Cat [facility], [facility] [address] [place] [address] 11/05/2023 Dk Vernona Bipolar disorder, current episode mixed, unspecified F31.60 [facility], [facility] [address] [place] [address] 11/17/2023 Dk Cat Generalized anxiety disorder F41.1 and Insomnia due to other mental disorder F51.05 [facility], [facility] [address] [place] [address] 12/04/2023 Dk [place] Insomnia due to othe r mental disorder F51.05 [facility], [facility] [address] [place] [address] 01/29/2024 Dk Cat [facility], [facility] [address] [place] [address] 02/06/2024 Dk Cat Generalized anxiety disorder F41.1 [facility], [facility] [address] [place] [address] 03/24/2024 Dk Cat [facility], [facility] [address] [place] [address] 04/07/2024 Dk Cat [facility], [facility] [address] [place] [address] 04/25/2024 Dk Cat [facility], [facility] [address] [place] [address] 04/26/2024 [facility] [address] [place] [address] 05/07/2024 Dk Cat [facility], [facility] [address] [place] [address] 05/07/2024 Dk Cat [facility], [facility] [address] [place] [address] 05/08/2024 [facility], [facility] [address] [place] [address] 05/18/2024 Deysi Hendrickson Insomnia due to othe r mental disorder F51.05 [facility], [facility] [address] [place] [address] 06/03/2024 [facility], [facility] [address] [place] [address] 06/05/2024 [facility] [address] [place] [address] 06/15/2024 [facility], [facility] [address] [place] [address] 06/16/2024 [facility], [facility] [address] [place] [address] 06/17/2024 [facility], [facility] [address] [place] [address] 07/27/2024 [facility], [facility] [address] [place] [address] 08/02/2024 [facility] [address] [place] [address] 08/02/2024 [facility], [facility] [address] [place] [address] 08/02/2024 Dk Cat Assessments Encounter Date Diagnosis (ICD Code) Assessment Notes Treatment Notes Treatment Clinical Notes Section Notes 11/17/2023 Generalized anxiety disorder (ICD-10 - F41.1) 11/17/2023 Insomnia due to other mental disorder (ICD-10 - F51.05) 11/19/2023 Bipolar disorder, current episode depressed, moderate (ICD-10 - F31.32) 12/04/2023 Insomnia due to other mental disorder (ICD-10 - F51.05) 01/20/2024 Generalized anxiety disorder (ICD-10 - F41.1) 09/15/2023 Generalized anxiety disorder (ICD-10 - F41.1) 1. Bipolar Disorder: - Continue Lamotrigine 200 mg twice a day. - Decrease Bupropion SR to 200 mg once daily for a week, then discontinue. - Decrease Caplyta to 21 mg once daily for a week, then to 10.5 mg once daily for a week, and then discontinue. - Initiate Vraylar 1.5 mg daily after discontinuing Qsymia. - Reassess in one month. 2. Insomnia: - Continue Zolpidem 10 mg at bedtime as needed. - Reassess in one month. 3. ADHD - Predominantly Inattentive Type: - Continue Atomoxetine 80 mg daily. - Reassess in one month. 4. Anxiety Disorder: - Continue Alprazolam 0.5 mg twice a day as needed. - Reassess in one month. 09/15/2023 Attention-defici t hyperactivity disorder, predominantly inattentive type (ICD-10 - F90.0) 1. Bipolar Disorder: - Continue Lamotrigine 200 mg twice a day. - Decrease Bupropion SR to 200 mg once daily for a week, then discontinue. - Decrease Caplyta to 21 mg once daily for a week, then to 10.5 mg once daily for a week, and then discontinue. - Initiate Vraylar 1.5 mg daily after discontinuing Qsymia. - Reassess in one month. 2. Insomnia: - Continue Zolpidem 10 mg at bedtime as needed. - Reassess in one month. 3. ADHD - Predominantly Inattentive Type: - Continue Atomoxetine 80 mg daily. - Reassess in one month. 4. Anxiety Disorder: - Continue Alprazolam 0.5 mg twice a day as needed. - Reassess in one month. 10/20/2023 Generalized anxiety disorder (ICD-10 - F41.1) 1. Bipolar Disorder - Patient reports significant improvement in mood, with no current depressive or manic symptoms. They are currently on lamotrigine 200 mg daily and Vraylar 1.5 mg daily. Plan: - Continue lamotrigine 200 mg daily and Vraylar 1.5 mg daily. - Monitor for any signs of mood instability or side effects. - Follow up in 3 months. 2. ADHD - Patient is currently on atomoxetine 80 mg daily. Plan: - Continue atomoxetine 80 mg daily. - Monitor for effectiveness and side effects. - Follow up in 3 months. 3. Insomnia - Patient reports difficulty falling asleep. They are currently on zolpidem 10 mg at bedtime. Plan: - Continue zolpidem 10 mg at bedtime. - Encourage good sleep hygiene practices. - Follow up in 3 months. 4. Anxiety - Patient is currently on alprazolam 0.5 mg twice a day as needed. They reported an issue with the medication's appearance and taste, but it still seemed effective. Plan: - Continue alprazolam 0.5 mg twice a day as needed. - Monitor for any further issues with the medication. - Follow up in 3 months. 5. Hypertension - Patient is currently on Losartan HCTZ 100 mg daily and amlodipine 5 mg daily. Plan: - Continue Losartan HCTZ 100 mg daily and amlodipine 5 mg daily. - Monitor blood pressure regularly. - Follow up in 3 months. 6. Neurological Symptoms - Patient reports vision problems, headaches, nausea, numbness, and pain in the left arm and hand, and leg issues. They have an appointment with a neurologist. Plan: - Encourage patient to attend the neurologist appointment and follow their recommendations. - Follow up in 3 months or sooner if needed. - Follow up in 3 months. 11/05/2023 Bipolar disorder, current episode mixed, unspecified (ICD-10 - F31.60) 11/17/2023 Insomnia due to other mental disorder (ICD-10 - F51.05) 02/06/2024 Generalized anxiety disorder (ICD-10 - F41.1) 05/18/2024 Insomnia due to other mental disorder (ICD-10 - F51.05) 06/03/2024 Generalized anxiety disorder (ICD-10 - F41.1) 10/20/2023 Attention-defici t hyperactivity disorder, predominantly inattentive type (ICD-10 - F90.0) atomoxetine 80mg daily 1. Bipolar Disorder - Patient reports significant improvement in mood, with no current depressive or manic symptoms. They are currently on lamotrigine 200 mg daily and Vraylar 1.5 mg daily. Plan: - Continue lamotrigine 200 mg daily and Vraylar 1.5 mg daily. - Monitor for any signs of mood instability or side effects. - Follow up in 3 months. 2. ADHD - Patient is currently on atomoxetine 80 mg daily. Plan: - Continue atomoxetine 80 mg daily. - Monitor for effectiveness and side effects. - Follow up in 3 months. 3. Insomnia - Patient reports difficulty falling asleep. They are currently on zolpidem 10 mg at bedtime. Plan: - Continue zolpidem 10 mg at bedtime. - Encourage good sleep hygiene practices. - Follow up in 3 months. 4. Anxiety - Patient is currently on alprazolam 0.5 mg twice a day as needed. They reported an issue with the medication's appearance and taste, but it still seemed effective. Plan: - Continue alprazolam 0.5 mg twice a day as needed. - Monitor for any further issues with the medication. - Follow up in 3 months. 5. Hypertension - Patient is currently on Losartan HCTZ 100 mg daily and amlodipine 5 mg daily. Plan: - Continue Losartan HCTZ 100 mg daily and amlodipine 5 mg daily. - Monitor blood pressure regularly. - Follow up in 3 months. 6. Neurological Symptoms - Patient reports vision problems, headaches, nausea, numbness, and pain in the left arm and hand, and leg issues. They have an appointment with a neurologist. Plan: - Encourage patient to attend the neurologist appointment and follow their recommendations. - Follow up in 3 months or sooner if needed. - Follow up in 3 months. 06/03/2024 Attention-defici t hyperactivity disorder, predominantly inattentive type (ICD-10 - F90.0) atomoxetine 80mg daily 09/15/2023 Insomnia due to other mental disorder (ICD-10 - F51.05) 1. Bipolar Disorder: - Continue Lamotrigine 200 mg twice a day. - Decrease Bupropion SR to 200 mg once daily for a week, then discontinue. - Decrease Caplyta to 21 mg once daily for a week, then to 10.5 mg once daily for a week, and then discontinue. - Initiate Vraylar 1.5 mg daily after discontinuing Qsymia. - Reassess in one month. 2. Insomnia: - Continue Zolpidem 10 mg at bedtime as needed. - Reassess in one month. 3. ADHD - Predominantly Inattentive Type: - Continue Atomoxetine 80 mg daily. - Reassess in one month. 4. Anxiety Disorder: - Continue Alprazolam 0.5 mg twice a day as needed. - Reassess in one month. 01/20/2024 Attention-defici t hyperactivity disorder, predominantly inattentive type (ICD-10 - F90.0) atomoxetine 80mg daily 02/03/2024 Generalized anxiety disorder (ICD-10 - F41.1) Electronic Prior Authorization was requested for ALPRAZolam 0.5 MG Tablet. Provider can order medication once approval received. 01/20/2024 Insomnia due to other mental disorder (ICD-10 - F51.05) zolpidem 10mg hs prn 10/20/2023 Insomnia due to other mental disorder (ICD-10 - F51.05) zolpidem 10mg hs prn 1. Bipolar Disorder - Patient reports significant improvement in mood, with no current depressive or manic symptoms. They are currently on lamotrigine 200 mg daily and Vraylar 1.5 mg daily. Plan: - Continue lamotrigine 200 mg daily and Vraylar 1.5 mg daily. - Monitor for any signs of mood instability or side effects. - Follow up in 3 months. 2. ADHD - Patient is currently on atomoxetine 80 mg daily. Plan: - Continue atomoxetine 80 mg daily. - Monitor for effectiveness and side effects. - Follow up in 3 months. 3. Insomnia - Patient reports difficulty falling asleep. They are currently on zolpidem 10 mg at bedtime. Plan: - Continue zolpidem 10 mg at bedtime. - Encourage good sleep hygiene practices. - Follow up in 3 months. 4. Anxiety - Patient is currently on alprazolam 0.5 mg twice a day as needed. They reported an issue with the medication's appearance and taste, but it still seemed effective. Plan: - Continue alprazolam 0.5 mg twice a day as needed. - Monitor for any further issues with the medication. - Follow up in 3 months. 5. Hypertension - Patient is currently on Losartan HCTZ 100 mg daily and amlodipine 5 mg daily. Plan: - Continue Losartan HCTZ 100 mg daily and amlodipine 5 mg daily. - Monitor blood pressure regularly. - Follow up in 3 months. 6. Neurological Symptoms - Patient reports vision problems, headaches, nausea, numbness, and pain in the left arm and hand, and leg issues. They have an appointment with a neurologist. Plan: - Encourage patient to attend the neurologist appointment and follow their recommendations. - Follow up in 3 months or sooner if needed. - Follow up in 3 months. 06/03/2024 Insomnia due to other mental disorder (ICD-10 - F51.05) zolpidem 10mg hs prn 09/15/2023 Bipolar disorder, current episode depressed, moderate (ICD-10 - F31.32) 1. Bipolar Disorder: - Continue Lamotrigine 200 mg twice a day. - Decrease Bupropion SR to 200 mg once daily for a week, then discontinue. - Decrease Caplyta to 21 mg once daily for a week, then to 10.5 mg once daily for a week, and then discontinue. - Initiate Vraylar 1.5 mg daily after discontinuing Qsymia. - Reassess in one month. 2. Insomnia: - Continue Zolpidem 10 mg at bedtime as needed. - Reassess in one month. 3. ADHD - Predominantly Inattentive Type: - Continue Atomoxetine 80 mg daily. - Reassess in one month. 4. Anxiety Disorder: - Continue Alprazolam 0.5 mg twice a day as needed. - Reassess in one month. 06/03/2024 Bipolar disorder, current episode depressed, moderate (ICD-10 - F31.32) lamotrigine 200mg bid, vraylar 4.5mg daily 10/20/2023 Bipolar disorder, current episode depressed, moderate (ICD-10 - F31.32) lamotrigine 200mg bid, vraylar 1.5mg daily 1. Bipolar Disorder - Patient reports significant improvement in mood, with no current depressive or manic symptoms. They are currently on lamotrigine 200 mg daily and Vraylar 1.5 mg daily. Plan: - Continue lamotrigine 200 mg daily and Vraylar 1.5 mg daily. - Monitor for any signs of mood instability or side effects. - Follow up in 3 months. 2. ADHD - Patient is currently on atomoxetine 80 mg daily. Plan: - Continue atomoxetine 80 mg daily. - Monitor for effectiveness and side effects. - Follow up in 3 months. 3. Insomnia - Patient reports difficulty falling asleep. They are currently on zolpidem 10 mg at bedtime. Plan: - Continue zolpidem 10 mg at bedtime. - Encourage good sleep hygiene practices. - Follow up in 3 months. 4. Anxiety - Patient is currently on alprazolam 0.5 mg twice a day as needed. They reported an issue with the medication's appearance and taste, but it still seemed effective. Plan: - Continue alprazolam 0.5 mg twice a day as needed. - Monitor for any further issues with the medication. - Follow up in 3 months. 5. Hypertension - Patient is currently on Losartan HCTZ 100 mg daily and amlodipine 5 mg daily. Plan: - Continue Losartan HCTZ 100 mg daily and amlodipine 5 mg daily. - Monitor blood pressure regularly. - Follow up in 3 months. 6. Neurological Symptoms - Patient reports vision problems, headaches, nausea, numbness, and pain in the left arm and hand, and leg issues. They have an appointment with a neurologist. Plan: - Encourage patient to attend the neurologist appointment and follow their recommendations. - Follow up in 3 months or sooner if needed. - Follow up in 3 months. 01/20/2024 Bipolar disorder, current episode depressed, moderate (ICD-10 - F31.32) lamotrigine 200mg bid, vraylar 4.5mg daily Plan Of Treatment Next Appt Details Provider Name:Dk rosa, 09/03/2024 09:45:00 AM, [facility] [facility] [address] [address] [facility], [place], [address], Insurance Providers Payer Name Payer Address Payer Phone Subscriber Number Group Number Insured Name Patient Relationship to Insured Coverage Start Date Coverage End Date [employer] [employer] [address] [place] [address] [id number] CLAUDINE AVINA Spouse - patient is the spouse of the insured Medicare-I l Medicare [address] [place] [address] [id number] QUIANA AVINA Self - patient is the insured Medical (General) History Medical History History ICD Code Problems: Attention deficit hyperactivity disorder, predominantly inattentive type Bipolar affective disorder, current epis ode depression Bipolar affective disorder, current epis ode mixed Generalized anxiety disorder Insomnia disorder related to another men crystal disorder , Surgical History Surgery Date(Month/Year) Oophorectomy (18807) 04/23/2022 Hysterectomy (60397) 04/23/2022 Removal of gallbladder (61267) 7
--- OUTSIDE RECORDS SUMMARY | 2024-08-04 10:33 | XMS_ITS | Data Portability ---
Author Organization [place] [facility] [employer], Main Office Address [address] [place] [address] Assessment Encounter Date Assessment Date Assessment LastModified by Organization Details LastModified Time 10/10/2022 10/10/2022 HPI: 51-year-old female came in today for evaluation of her bilateral knee pain. I saw her a year ago and at that time she had burf-hy-ptit osteoarthritis medial compartment of both knees. She states she had cortisone injections late last year and again in May of this year. The once in May did not seem to help a whole lot. She has been on naproxen 500 mg b.i.d. and stop taking this because she did not feel it helped. She has been trying Voltaren gel over the counter on the knees but has had no improvement of her symptoms. Physical exam: 51-year-old female she is 5 ft tall and 374 lb her BMI is 73. she has mild palpable effusions of both knees. She has about 3 degree flexion contracture in both knees and flexes to 115 bilaterally. Moderate tenderness over both medial joint lines palpation. No increased swelling in either lower extremity. After ChloraPrep was used on skin 20 mg Kenalog and 3 cc of 0.5% ropivacaine was injected into both knees. Risk infection discussed. Impression: 51-year-old female who has advanced medial compartment osteoarthritis in both knees. She is super obese with a BMI of 73. a long discussion with her about her weight. She states that she has been to 3 different weight loss surgeons and did not have surgery. She was told she had lose 50 lb before having the surgery and did not feel she wished to do that. She has been using the [email or web address] cipriano, she has had the calorie intake at 2080 per day advised her that this would be the calorie intake to maintain weight not to lose weight and she should limit calories to no more than 1600 per day she wants to lose weight. If she does not lose weight I discussed with her that she is going to get to a point where medication and injections may not offer any benefit from the pain in the knees in she may become completely debilitated because of that. She wished to try different anti-inflammatory and I prescribed her Voltaren. We will get blood work at intervals and I discussed that with her as well if she stays on it. She repeat cortisone injections often as every 3 months and she would like to have another appointment in 3 months for additional injections are will set that up. We did discuss viscosupplementation injections as well and I advised her that typically people with more advanced arthritis do not seem to get much benefit from those but certainly this is an option if she wishes to try it in the future and she will keep that in mind as well. We will see her back in 3 months. 20 minutes was spent in treatment of the patient more than half of that in [id number]-vv-[id number] conversation [email or web address] Not available 10/10/2022 11:53:04 12/12/2022 12/12/2022 Impression: Mayra decker is a 52-year-old female with super obesity BMI of 70 with severe medial compartment osteoarthritis in both knees. She would like monovisc shots in both knees. Risks of side effects including risk of infection discussed. After ChloraPrep prep, I tried injecting her left knee from a lateral parapatellar approach after local anesthetic was 0.5% ropivacaine in the soft tissues, but I could not with certainty achieve an intra-articular placement. We abandoned this change needles and again prepped with ChloraPrep and with 20 gauge needle intra-articular placement was successful from a medial parapatellar approach and after small amount of joint fluid was aspirated , 1 vial of Monovisc was injected into the left knee. A medial parapatellar approach was therefore used on the right knee as well the same fashion And 1 monitor his injected into the right knee after aspiration of a small amount of joint fluid. I had a long discussion with her significant other about weight loss. She has bipolar disease and mixed anxiety and depressive disorders and is very difficult for her to control her desire to eat. Unfortunately, her arthritis is going to continue to worsen and she is going to become more physically incapacitated and at some point she is going to want to undergo knee replacement surgery but she will be able to have the surgery until she has lost weight to achieve a BMI less than 40. I have discussed with her that if she decreases her daily caloric intake she will lose weight. I have given her handout explaining the correlation between calories body weight. Unfortunately there is no one else they can do this for. She is going to have to have enough will power to lose a little bit of weight qualify for weight loss surgery. We will check a CMP and CBC before refilling her diclofenac. 40 minutes were spent in total care this patient with more than half the time spent in avzg-ky-[id number] care. [email or web address] Not available 12/29/2022 17:10:01 Plan of Treatment Reminders Order Date Submit Date Provider Last Modified By Organization Details Last Modified Time Details Appointments None recorded. Lab None recorded. Referral None recorded. Procedures knee aspiration/ injection (PROC) 2022 023 [email or web address] In-Office Order, Internal Use Only DO Not Attach Compendium DO Not Attach Compendium, Do Not Delete/merge, [id number] 12:08:40 injection/a spiration joint/bursa (PROC) - in office procedure, administere d by provider 2022 023 [email or web address] In-Office Order, Internal Use Only DO Not Attach Compendium DO Not Attach Compendium, Do Not Delete/merge, [id number] 11:20:09 Surgeries None recorded. Imaging XR, knee 2022 023 [email or web address] [facility], [address] [place] [address], [place], [address], 17:52:40 Medication Orders Monovisc 88 mg/4 mL intra-artic ular syringe 2022 023 [email or web address] Not available 15:29:58 ropivacaine (PF) 5 mg/mL (0.5 %) injection solution 2022 023 [email or web address] [id number], [address] [facility], [place], [place], [id number], 3 15:23:43 Kenalog 10 mg/mL suspension for injection [address] [id number], [address], [place], [place], [id number], 3 17:52:40 ropivacaine (PF) 5 mg/mL (0.5 %) injection solution [address] [id number], [address], [place], [place], [id number], 3 17:52:40 diclofenac sodium 75 mg tablet,priya yed release [address] [facility][id number], [address], [place], [place], [id number], 3 17:52:40 Patient TargetsNo targets recorded. Patient InstructionsNo instructions recorded. Reason for Referral None Reported. Results Created Date Observation Date Name Description Value Unit Range Abnormal Flag Note LastModifiedBy Organization Detail LastModifiedTime 06/22/19 22 03/12/2021 oxime try monit oring overn ight No observ ation record ed. MIGRATION. [address], [address], 04/24/2022 14:51:56 06/22/19 22 03/17/2021 respi rator y thera py (PROC ) No observ ation record ed. [id number] Not Available 04/24/2022 14:51:56 08/24/19 22 08/23/2021 XR, knee No observ ation record ed. [id number], [place], [address], 04/24/2022 14:51:56 09/20/19 22 09/19/2021 XR, knee, 3 view [facility] [address] [facility] [place] [address] Tino bunn Name: ALVIN PAGE Access ion #: [id number] Sex: F : 1970 7 Locati on: RAD Attend ing Physic angie: LILI HANEY ER Orderi ng Physic angie: LILI HANEY ER Exam Date: 4:35 PM Exam Name: XR KNEE RT 3V Admitt ing Diagno sis(es ): RADIOL OGY REPORT - FINAL EXAM: XR KNEE RT 3V HISTOR Y: INJURY COMPAR NGUYỄN: None. TECHNI QUE: Three views of the right knee were perfor med. FINDIN GS: No acute fractu re or perios teal reacti on. Severe medial compar tment narrow ing. Tricom partme ntal osteoa rthrit ic residu als, severe , greate st medial ly and at the femora l patell ar joint compar tment. No eviden ce of a fractu re or joint effusi on. IMPRES BARBRA: Page [facility] 2 [facility] Tino bunn Name: ALVIN PAGE Access ion #: [id number] Sex: F : 1970 7 Exam Date: 4:35 PM Exam Name: XR KNEE RT 3V Admitt ing Diagno sis(es ): Severe osteoa rthrit ic residu als, see above. Create d and electr onical ly signed by: Mason greenwood MD Signed Date: 5:05 PM (CT) Dictat ed by: Mason greenwood MD DD: 5:05 PM (CT) DT: 5:05 PM (CT) Page 2 of 2 [id number] [facility] (Imaging) [address] [facility] [place], [address], 04/24/2022 14:51:56 10/19/19 22 XR, knee No observ ation record ed. MIGRATION. [facility] [address] [facility], [place], [address], 04/24/2022 14:51:56 03/04/19 23 04/11/2016 polys omnog grecia No observ ation record ed. [email or web address]. [id number] Not Available 04/24/2022 14:51:56 03/04/19 23 04/14/2019 MAMMO , scree linn, digit al, bilat eral No observ ation record ed. MIGRATION. [id number] Not Available 04/24/2022 14:51:56 10/11/19 23 XR, knee No observ ation record ed. [email or web address] [facility] [address] [facility], [place], [address], 10/10/2022 11:48:37 Result Notes None recorded. Problems Name Problem SNOMED Code Status Onset Date Resolution Date Notes Provider Name and Address Organization Details Recorded Time Injury of right knee 06686171376 714001 Active 2021 Not Available [facility] 3 21:07:44 Bipolar disorder 41941654 Active Not Available [facility] 3 21:07:44 Acute sinusitis 87695108 Completed 202203/01/2022 Not Available [facility] 3 14:48:24 Liver function tests outside reference range 922574300 Active 2020 Not Available [facility] 3 21:07:44 Echocardi ogram abnormal 092562104 Active 2021 Not Available [facility] 3 21:07:44 Insomnia 316637621 Active 2021 Not Available [facility] 3 21:07:44 Asthma 210399010 Active 2021 Not Available [facility] 3 21:07:44 Cerebrova scular accident 093694435 Active Not Available [facility] 3 21:07:44 Gastroeso phageal reflux disease 070665364 Active Not Available [facility] 3 21:07:44 Tight chest 15069803 Completed 202103/29/2022 Not Available [facility] 3 14:48:25 History of SARS-CoV- 2 37319733988 2100162 Active 2021 Not Available [facility] 3 21:07:44 Hypertrig lyceridem ia 222069668 Active 2020 Not Available [facility] 3 21:07:44 Vitamin D deficienc y 99953427 Active 2021 Not Available [facility] 3 21:07:45 Depressiv e disorder 41482671 Active 2021 Not Available [facility] 3 21:07:45 Pain of multiple joints 52920181 Completed 202103/01/2022 Not Available [facility] 3 14:48:26 Seasonal allergic rhinitis 076149245 Active 2020 Not Available [facility] 3 21:07:45 Dysfuncti on of urinary bladder 55961613 Active 2020 Not Available [facility] 3 21:07:45 Obesity 059988300 Active Not Available [facility] 3 21:07:45 Pain of right knee joint 20959284658 4100 Active 2021 Not Available [facility] 3 21:07:45 Pain of left knee joint 57652259887 4107 Active 2021 Not Available [facility] 3 21:07:45 Cough 95679234 Completed Not Available [facility] 3 14:48:26 Hyperlipi demia 57679644 Active 2016 Not Available [facility] 3 21:07:45 Essential hypertens ion 46626872 Active Not Available [facility] 3 21:07:45 Dyspnea on exertion 78177912 Active 2021 Not Available [facility] 3 21:07:45 Sleep apnea 87599525 Active 2020 Not Available [facility] 3 21:07:45 Obstructi ve sleep apnea syndrome 35518908 Active 2021 Not Available [facility] 3 21:07:45 Hyperglyc emia 04008833 Active 2021 Not Available [facility] 3 21:07:45 Fatigue 44945210 Completed Not Available [facility] 3 14:48:27 Mixed anxiety and depressiv e disorder 626374727 Active 2022 Not Available [facility] 3 21:07:44 Pain of bilateral knee joints 89887891372 4104 Active 2022 Marion Green RMA null, [place] [facility] 3 10:19:59 Bilateral osteoarth ritis of knees 84548117735 9107 Active 2022 Marion Green, RMA null, [place] [facility] 3 12:06:44 Problem Notes None recorded. Procedures Surgical History Date Name Laterality Status Provider Name and Address Organization Details Recorded Time section completed Not Available [facility] 04/24/2022 14:45:52 cholecystectomy completed Not Available [facility] 04/24/2022 14:45:52 Hysterectomy completed MARTIN [facility] [place] [facility] 12/12/2022 12:15:59 Imaging Results None recorded. Procedure Notes None recorded. Medical Equipment None Reported. Allergies Allergen ID Allergen Name Allergen Category Reaction Reaction Severity Criticality Documentation Date Start Date Code Code System Note Provider Name and Address Organization Details Recorded Time 53870 Product containin g penicilli n (product) medicatio n hives Not available Not available 04/24/2022 92127 8001 SNOMED Not Available [facility] 3 14:51:50 82774 lisinopri l medicatio n cough Not available Not available 04/24/2022 24611 RxNorm Not Available [facility] 3 14:51:50 Medications Name Sig Start Date Stop Date Status Note LastModified by Organization Details LastModified Time losartan 50 mg tablet TAKE 1 TABLET BY MOUTH EVERY DAY active Not Available Not Available No t Available fluoxetine 40 mg capsule TAKE 1 CAPSULE BY MOUTH EVERY DAY 10/10 completed Not Available Not Available Not Available cyclobenza kathe 10 mg tablet TAKE 1 TABLET BY MOUTH THREE TIMES DAILY NEEDED active Not Available Not Available No t Available lamotrigin e 150 mg tablet TAKE 1 TABLET BY MOUTH TWICE DAILY active Not Available Not Available No t Available metformin 500 mg tablet TAKE 1 TABLET BY MOUTH TWICE DAILY 10/10 completed Not Available Not Available Not Available bupropion HCl SR 150 mg tablet,12 hr sustained- release TK 1 T PO BID 02/02 completed Not Available Not Available Not Available neomycin-p olymyxin-h ydrocort 3.5 mg/mL-10,0 00 unit/mL-1 % ear solution INSTILL 4 DROPS INTO AFFECTED EAR(S) BY OTIC ROUTE 3 TIMES PER DAY 11/03 completed Not Available Not Available Not Available atorvastat in 80 mg tablet TAKE 1 TABLET BY MOUTH EVERY DAY FOR HIGH CHOLESTE ROL active Not Available Not Available No t Available prednisone 10 mg tablet 40mg x3 days, [id number] ys,20mg x3 days, 10mg x3 days active called to phar Not Available Not Available Not Available doxycyclin e hyclate 100 mg capsule Take 1 capsule twice a day by oral route. 10/10 completed Not Available Not Available Not Available lamotrigin e 200 mg tablet TAKE 1 TABLET BY MOUTH TWICE DAILY 12/12 completed Not Available Not Available Not Available atorvastat in 10 mg tablet TAKE 1 TABLET BY MOUTH EVERY DAY 12/12 completed Not Available Not Available Not Available oxybutynin chloride ER 10 mg tablet,ext ended release 24 hr TAKE 1 TABLET BY MOUTH EVERY DAY 10/10 completed Not Available Not Available Not Available azithromyc in 250 mg tablet Take 2 tablets po on day then 1 tablet daily for 4 days active Not Available Not Available No t Available fluconazol e 150 mg tablet TK 1 T PO ONCE 02/02 completed Not Available Not Available Not Available benzonatat e 200 mg capsule TK 1 C PO TID PRN active Not Available Not Available No t Available naltrexone 50 mg tablet TAKE 1 TABLET BY MOUTH EVERY MORNING 10/10 completed Not Available Not Available Not Available clonazepam 0.5 mg tablet active Not Available Not Available Not Available olanzapine 10 mg tablet TK 1 T PO HS 02/02 completed Not Available Not Available Not Available ciprofloxa iva 250 mg tablet TK 1 T PO Q 12 H . 11/27 completed Not Available Not Available Not Available sulfametho xazole 800 mg-trimeth oprim 160 mg tablet TAKE 1 TABLET BY MOUTH EVERY 12 HOURS active Not Available Not Available No t Available tramadol 50 mg tablet TAKE 1 TABLET BY MOUTH THREE TIMES DAILY NEEDED 10/10 completed Not Available Not Available Not Available bupropion HCl SR 100 mg tablet,12 hr sustained- release active Not Available Not Available Not Available levothyrox ine 25 mcg tablet TK 1 T PO QD 07/18 completed Not Available Not Available Not Available lamotrigin e 25 mg tablet TK 2 TS PO D 02/26 completed Not Available Not Available Not Available oxycodone- acetaminop hen 5 mg-325 mg tablet TAKE 1 TABLET BY MOUTH EVERY 4 HOURS NEEDED FOR PAIN 12/12 completed Not Available Not Available Not Available Tessalon Perles 100 mg capsule Take 2 capsules 3 times a day by oral route. 03/05 completed Not Available Not Available Not Available alprazolam 0.5 mg tablet TAKE 1 TABLET BY MOUTH TWICE DAILY NEEDED active Not Available Not Available No t Available alprazolam 0.25 mg tablet TAKE 1 TABLET BY MOUTH TWICE DAILY 07/17 completed Not Available Not Available Not Available aspirin 325 mg tablet,del ayed release TK 1 T PO QD 10/10 completed Not Available Not Available Not Available Kenalog 10 mg/mL suspension for injection in office 2022 active [facility]: [phone] Not Available Not Available Not Available lithium carbonate 300 mg capsule 09/13 completed Not Available Not Available Not Available doxycyclin e monohydrat e 100 mg capsule Take 1 capsule twice a day by oral route for 7 days. active Not Available Not Available No t Available Cartia XT 120 mg capsule,ex tended release Take 1 capsule every day by oral route. active Not Available Not Available No t Available esomeprazo le magnesium 40 mg capsule,de layed release TAKE 1 CAPSULE BY MOUTH EVERY DAY IN THE MORNING active Not Available Not Available No t Available lisinopril 10 mg tablet TAKE 1 TABLET BY MOUTH DAILY 02/26 completed Not Available Not Available Not Available Advair Diskus 500 mcg-50 mcg/dose powder for inhalation Inhale 1 puff twice a day by inhalati on route. active Not Available Not Available No t Available gabapentin 300 mg capsule TAKE 1 CAPSULE BY MOUTH THREE TIMES DAILY active Not Available Not Available No t Available diclofenac sodium 75 mg tablet,del ayed release TAKE 1 TABLET BY MOUTH TWICE DAILY active Not Available Not Available No t Available montelukas t 10 mg tablet TAKE 1 TABLET BY MOUTH EVERY DAY active Not Available Not Available No t Available lisinopril 5 mg tablet TK 1 T PO D 07/24 completed Not Available Not Available Not Available zolpidem 5 mg tablet TAKE 1 TABLET BY MOUTH EVERY NIGHT AT BEDTIME NEEDED 10/10 completed Not Available Not Available Not Available ergocalcif av (vitamin D2) 1,250 mcg (50,000 unit) capsule TAKE 1 CAPSULE BY MOUTH EVERY WEEK FOR 56 DAYS DIRECTED 10/10 completed Not Available Not Available Not Available levofloxac in 500 mg tablet TAKE 1 TABLET BY MOUTH EVERY 24 HOURS FOR 7 DAYS active Not Available Not Available No t Available levofloxac in 750 mg tablet TK 1 T PO QD active Not Available Not Available No t Available zolpidem 10 mg tablet TAKE 1 TABLET BY MOUTH EVERY DAY AT BEDTIME active Not Available Not Available No t Available methylpred nisolone 4 mg tablets in a dose pack FOLLOW PACKAGE DIRECTIO NS 04/22 completed Not Available Not Available Not Available albuterol sulfate HFA 90 mcg/actuat ion aerosol inhaler INHALE 2 PUFFS BY MOUTH EVERY 4 HOURS NEEDED 10/18 completed Not Available Not Available Not Available Cortispori n-TC 3.3 mg-3 mg-10 mg-0.5 mg/mL ear drops,susp ension Instill 1 drop 4 times a day by otic route for 7 days. 11/03 completed Not Available Not Available Not Available ondansetro n 4 mg disintegra ting tablet 12/12 completed Not Available Not Available Not Available fluoxetine 20 mg capsule TAKE 1 CAPSULE BY MOUTH EVERY DAY 12/12 completed Not Available Not Available Not Available fluticason e propionate 50 mcg/actuat ion nasal spray,susp ension 2 sprays each nostril once daily at supper active Not Available Not Available No t Available lamotrigin e 100 mg tablet TAKE 1 TABLET BY MOUTH TWICE DAILY active Not Available Not Available No t Available naproxen 500 mg tablet TAKE 1 TABLET BY MOUTH TWICE DAILY 12/12 completed Not Available Not Available Not Available neomycin-p olymyxin-h ydrocort 3.5 mg-10,000 unit/mL-1 % ear drops,susp DROP 1 DROP INTO AFFECTED EAR(S) 4 TIMES A DAY FOR 7 DAYS active Not Available Not Available No t Available bupropion HCl SR 200 mg tablet,12 hr sustained- release TAKE 1 TABLET BY MOUTH TWICE DAILY active Not Available Not Available No t Available aripiprazo le 15 mg tablet TK 1 T PO QAM 02/02 completed Not Available Not Available Not Available atomoxetin e 40 mg capsule 10/10 completed Not Available Not Available Not Available cyclobenza kathe 5 mg tablet TAKE 1 TABLET BY MOUTH THREE TIMES DAILY NEEDED FOR 5 DAYS active Not Available Not Available No t Available rosuvastat in 20 mg tablet Take 1 tablet every day by oral route. active Not Available Not Available No t Available rosuvastat in 40 mg tablet TAKE 1 TABLET BY MOUTH EVERY DAY 12/12 completed Not Available Not Available Not Available bupropion HCl XL 300 mg 24 hr tablet, extended release TK 1 T PO QAM 07/11 completed Not Available Not Available Not Available nitrofuran toin monohydrat e/macrocry stals 100 mg capsule TK ONE C PO Q 12 H FOR 5 DAYS 01/05 completed Not Available Not Available Not Available duloxetine 60 mg capsule,de layed release TAKE 1 CAPSULE BY MOUTH DAILY 10/10 completed Not Available Not Available Not Available atomoxetin e 80 mg capsule TAKE 1 CAPSULE BY MOUTH EVERY DAY active Not Available Not Available No t Available cholecalci ferol (vitamin D3) 50 mcg (2,000 unit) capsule TAKE 1 CAPSULE BY MOUTH DAILY DIRECTED FOR 30 DAYS 10/10 completed Not Available Not Available Not Available cholecalci ferol (vitamin D3) 50 mcg (2,000 unit) tablet TAKE 1 TABLET BY MOUTH EVERY DAY DIRECTED active Not Available Not Available No t Available tranexamic acid 650 mg tablet TK 2 TS PO TID DURING MENSES 10/10 completed Not Available Not Available Not Available Latuda 40 mg tablet Take 1 tablet every day by oral route for 30 days. active Not Available Not Available No t Available lurasidone 80 mg tablet TAKE 1 TABLET BY MOUTH EVERY DAY active Not Available Not Available No t Available ropivacain e (PF) 5 mg/mL (0.5 %) injection solution injectio n in office 2022 active [facility] [phone] Not Available Not Available Not Available lurasidone 20 mg tablet TAKE 1 TABLET BY MOUTH EVERY DAY active Not Available Not Available No t Available Latuda 120 mg tablet TK ONE T PO QHS active Not Available Not Available No t Available lurasidone 60 mg tablet TAKE 1 TABLET BY MOUTH EVERY DAY 12/12 completed Not Available Not Available Not Available Monovisc 88 mg/4 mL intra-jesus cular syringe in office 2022 active [facility];[phone] Not Available Not Available Not Available Arnuity Ellipta 200 mcg/actuat ion powder for inhalation Inhale 1 puff every day by inhalati on route as directed for 90 days. 10/10 completed Not Available Not Available Not Available Arnuity Ellipta 100 mcg/actuat ion powder for inhalation Inhale 1 puff every day by inhalati on route as directed for 30 days. active Not Available Not Available No t Available naloxone 4 mg/actuati on nasal spray CALL 911. SPR CONTENTS OF ONE SPRAYER (0.1ML) INTO ONE NOSTRIL. REPEAT IN 2-3 MIN IF SYMPTOMS OF OPIOID EMERGENC Y PERSIST, ALTERNAT E NOSTRILS 10/10 completed Not Available Not Available Not Available Wegovy 0.25 mg/0.5 mL subcutaneo us pen injector ADMINIST ER 0.5 ML UNDER THE SKIN 1 TIME WEEKLY 12/12 completed Not Available Not Available Not Available Mounjaro 7.5 mg/0.5 mL subcutaneo us pen injector Inject by subcutan eous route for 28 days. active Not Available Not Available No t Available Vitals Date Recorded Body mass index (BMI) Body height Oxygen saturation Oxygen saturation in Arterial blood by Pulse oximetry Heart rate Body weight Systolic blood pressure Diastolic blood pressure Provider Name and Address Organization Details Last Updated DateTime 2 70.6 kg/m2 157.48 cm 95 % 95 % 106 /min 640785. 65 g 140 mm[Hg] 80 mm[Hg] Not Available [facility] 3 14:47:09 Date Recorded Body height Oxygen saturation Oxygen saturation in Arterial blood by Pulse oximetry Heart rate Systolic blood pressure Diastolic blood pressure Provider Name and Address Organization Details Last Updated DateTime 157.48 cm 97 % 97 % 90 /min 130 mm[Hg] 80 mm[Hg] Not Available [facility] 14:47:09 Date Recorded Body height Provider Name an d Address Organization Details Last Updated DateTime 10/10/2022 152.4 cm CELSO Adair [employer] 10/10/2022 10:17:02 Date Recorded Body mass index (BMI) Body height Body weight Provider Name and Address Organization Details Last Updated DateTime 10/18/2021 73 kg/m2 152.4 cm 306294.55 g Not Available [facility] 04/24/2022 14:47:12 Date Recorded Body height Body mass index (BMI) Body weight Provider Name and Address Organization Details Last Updated DateTime 12/12/2022 157.48 cm 70.1 kg/m2 510745.88 g Gilda Johnson [facility] [employer] 12/12/2022 12:31:17 Social History Question Answer Notes LastModified by [employer] Details LastModified Time Tobacco Smoking Status Never Smoker CELSO Adair [facility] 12/12/2022 12:15:49 What Is Your Level Of Caffeine Consumption? Moderate [id number] Information not available 04/24/2022 In The 14 Days Before Symptom Onset, Have You Had Close Contact With A Laboratory-confir med COVID-19 While That Case Was Ill? No [email or web address] Information not available 10/10/2022 In The 14 Days Before Symptom Onset, Have You Had Close Contact With A Person Who Is Under Investigation For COVID-19 While That Person Was Ill? No [email or web address] Information not available 10/10/2022 What Type Of Diet Are You Following? SPECIFIC Carb Free [id number] Information not available 04/24/2022 What Was The Date Of Your Most Recent Tobacco Screening? 07/18/2020 [email or web address] Information not available 10/10/2022 How Much Tobacco Do You Smoke? 0.25 PPD [id number] Information not available 04/24/2022 Sex: Female Functional Status Question Answer Note LastModified by Organizat ion Details LastModified Time What is your level of alcohol consumption? 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 Family History Relationship Description Onset Age of this Age Resolved Age Notes LastModified by Organization Details LastModified Time Mother Hypertensive disorder [id number] Not available 04/24/2022 14:45:53 Mother Malignant neoplastic disease [email or web address] Not available 10/10 10:02:20 Father Diabetes mellitus [id number] Not available 04/24/2022 14:45:53 Father Heart disease [id number] Not available 04/24/2022 14:45:53 Medical History Condition Response BLINDNESS N KIDNEY STONES N MRSA N CARPAL TUNNEL SYNDROME N LUNG DISEASE/DISORDER N HISTORY OF DRUG ABUSE N RADIATION / CHEMOTHERAPY N COPD N SPORTS INJURY N ANKLE PAIN N BLOOD DISEASES N SCHIZOPHRENIA N SHINGLES N SHOULDER PAIN N DEPRESSION (INCLUDING POST ) N BOWEL PROBLEMS N STROKE/TIA N ULCERS N KNEE PAIN N BENIGN PROSTATIC HYPERPLASIA N OBESITY N GERD/NAUSEA N ANEURYSM N URINARY/BLADDER/KIDNEY PROBLEMS Y CORONARY ARTERY DISEASE (CAD) N ADDICTION CONCERNS N USE OF BLOOD THINNERS Y SKIN PROBLEMS N EMPHYSEMA N MUSCLE,JOINT OR BONE PROBLEMS N DVT N STOMACH ULCERS N BLOOD CLOTS N USE OF NSAIDS N CONCUSSION OR SPINAL TRAUMA N NEUROPATHY N AIDS/HIV N FRACTURES N HYPERTENSION Y ELBOW PAIN N TOURETTE'S N Metal allergy N ANXIETY DISORDER N BLOOD TRANSFUSION N ANEMIA/BLOOD DISORDER Y BIPOLAR DISORDER N BRONCHITIS N OSTEOARTHRITIS N TUBERCULOSIS N FOOT PROBLEM N HEART VALVE DISORDERS N SLEEP APNEA Y ALLERGIES/HAYFEVER N SOFT TISSUE INJURY N INFECTIOUS DISEASE N HEART ARRHYTHMIA N INSOMNIA N HIGH CHOLESTEROL / HYPERLIPIDEMIA N RHEUMATOID ARTHRITIS N EDEMA N CHRONIC PAIN SYNDROME N CAROTID BLOCKAGE N BACK / NECK PROBLEMS N HAVE YOU BEEN HOSPITALIZED OR SEEN IN [facility] IN THE PAST YEAR ? N BURSITIS N HERNIATED DISC N DIALYSIS N FIBROMYALGIA N OSTEOPOROSIS N ARTHRITIS Y NO SIGNIFICANT PAST MEDICAL HISTORY N PERIPHERAL NEUROPATHY N DIABETES, TYPE N HEARTBURN / REFLUX N HEPATITIS / LIVER DISEASE N GOUT N ALZHEIMER'S DISEASE N SLEEP DISORDER N HERPES N HEADACHES/MIGRAINES N SEIZURES/EPILEPSY N VASCULAR DISEASE N Blood Disorder N HIP PAIN N DIZZINESS N HEAD TRAUMA OR INJURY N HEART DISEASE/HEART PROBLEMS N MULTIPLE SCLEROSIS N CANCER: SPECIFY N CARDIAC ARRHYTHMIA N ANESTHESIA COMPLICATIONS N ATRIAL FIBRILLATION N AUTOIMMUNE DISEASE N Gynecological HistoryNo gynecological history recorded. Obstetrics History GPAL:G 0 P 0 0 0 0 Past Encounters Encounter ID Performer Location Encounter Start Date Encounter Closed Date Diagnosis/Indication Diagnosis SNOMED-CT Code Diagnosis ICD10 Code Diagnosis Note [id number] Melvin Haney MD [facility] Internal Med [facility] [address] [facility] [place] [address] 07/18/2020 00:00:00 07/18/2020 12:14:25 [id number] Melvin Haney MD [facility] [address] [address] 11/22/2020 00:00:00 11/22/2020 12:59:36 [id number] [facility] [place] [address] [facility] [address] [place] [address] 01/08/2021 00:00:00 01/08/2021 13:43:50 [id number] Melvin Haney MD [facility] [address] [address] 01/16/2021 00:00:00 01/16/2021 12:46:04 [id number] [facility] [place] [address] [address] 03/19/2021 00:00:00 03/19/2021 15:05:47 [id number] Melvin Haney MD [facility] [address] [address] 07/17/2021 00:00:00 07/17/2021 13:28:10 [id number] MD ESVIN LottS[facility] Internal Med [address] [address] 09/19/2021 00:00:00 09/19/2021 16:43:38 [id number] Johann Almodovar MD [facility] [address] [address] 10/18/2021 00:00:00 10/18/2021 12:32:15 [id number] Johann Almodovar MD [facility] [address] [place] [address] 10/10/2022 09:58:04 10/10/2022 12:08:21 Pain of bilateral knee joints [id number] 70959 M25.561 M25.830 [id number] Johann Almodovar MD [facility] [address] [place] [address] 12/12/2022 12:02:23 12/30/2022 09:57:16 Bilateral osteoarthritis of knees [id number] 79247 M17.0 Health Concerns Section Related Observation LastModified by Organization Detai ls LastModified Time None Recorded Concern Status LastModified by Organization Details LastModified Time None Recorded Advance Directives Directive None Recorded Payers Encounter Date Sequence Insurance Name Policy Number Policy Randall Covered Member ID Randall Member ID Guarantor Name 10/10/2022 1 [place] [id number] Teddy S Burak [id number] Luiza S Burak 10/10/2022 2 [place] Luiza Mora Burak [id number] Luiza Mora Burak 12/12/2022 1 [place] [id number] Teddy Mora Burak [id number] Luiza Mora Burak 12/12/2022 2 [place] Luiza S Burak [id number] Luiza S Burak Notes Date Note Type Note Provider Name and Address Organization Details Recorded Time 12/12/2022 text/html Patient returns. She had cortisone shots in both knees 3 months ago by Sidney Sloan. These run 10/10/2022. She has had several rounds of cortisone shots. She was started on diclofenac 3 months ago and that helped her much better than the naproxen. She denies any history of liver problems kidney problems or peptic ulcer disease. I have recommended obtaining a complete metabolic profile and CBC for reviewing her diclofenac since she has been on it for 3 months. X-rays from October 10, 2022 demonstrates severe medial compartment osteoarthritis in both knees. The right knee hurts her little bit more as a bothers her at rest as well. She has been prescribed Wygovy Wygovy to help with weight loss but it is on back order. Apparently Wygovy is the only option that is covered by her insurance plan and many of the [facility] insurance plans and that reason it has been on back order for a long time and there are no other options that are covered by her insurance plan. She has extreme super obesity. She is 5 ft 2 in in height 383 lb BMI of 70.1. She has been to 3 different weight loss surgeons and all of them have told her that she would need to lose some weight initially before they would agree to doing her surgery and she has not done that so she has not been offered surgery. She does not use a cane or walker. She had asked about Visco supplementation when she was here 3 months ago and wanted to try that and she is here to receive a Monovisc injection in both knees today. Johann Almodovar MD [address] [place] [address], [facility] [address], [place], [address], [place] [facility] 12/29/2022 17:21:24 OBGyn Episode No OBEpisode recorded.
[2024-08-04 10:37] LABS: Add Urine Microscopic? YES; Appearance Urine Cloudy (Clear); Bacteria Urine 1+ /hpf; Bilirubin Urine Negative (Negative); Blood Urine Negative (Negative); Color Urine Yellow (Yellow); Glucose Urine UA Negative (Negative); Ketones Urine Negative (Negative); Leukocyte Esterase Ur Negative LEU/UL (Negative); Nitrate Urine Negative (Negative); Non Pathogenic Casts 0-2; Protein Urine Negative (Negative); RBC Urine 0-2 /hpf (0-2); Specific Grav Ur 1.012 (1.001-1.035); Squamous Epithelial Cell Urine Many /hpf (Few); Urobilinogen Urine 0.2 mg/dL (<2.0); WBC Urine 0-5 /hpf (0-3); pH Urine 7.5 (5.0-9.0)
[2024-08-04 11:26] VITALS: BP 143/96; PULSE 85; RESP 16; O2SAT 97
--- NOTE | 2024-08-04 11:26 | PC.NURSE ---
called lab and added on D-dimer.
[2024-08-04 11:37] LABS: D Dimer 0.39 ug/mL (<0.48)
--- OUTSIDE RECORDS SUMMARY | 2024-08-04 12:08 | XMS_ITS | Clinical Summary ---
Author Organization [facility] Address [address] [place] [address] Phone Care Team Providers Care Manager Flight Operations Name Role Phone Melvin Haney MD Primary Care Provider [phone] Allergies Active Allergy Reactions Criticality Noted Date Comments Lisinopril Cough Low 05/02/2021 Penicillins Hives High 10/09/2009 Medications buPROPion HCL (WELLBUTRIN SR) 150 mg Sustained Release 12 hour tablet Take 200 mg by mouth 2 times daily. Active ALPRAZolam (XANAX) 0.5 mg tablet Take 0.5 mg by mouth nightly as needed. Active montelukast (SINGULAIR) 10 mg tablet Take 10 mg by mouth daily. Active gabapentin (NEURONTIN) 300 mg capsule Take 300 mg by mouth 3 times daily. Active lurasidone (Latuda) 80 mg Tablet tablet Take by mouth. Active cholecalciferol , Vitamin D3, (Vitamin D3) 50 mcg (2,000 unit) Tablet Take by mouth. Active lamoTRIgine (LaMICtal) 200 mg tablet Take 150 mg by mouth daily. Active FLUoxetine (PROzac) 40 mg capsule Take 40 mg by mouth daily. Active rosuvastatin (CRESTOR) 40 mg tablet Take 40 mg by mouth daily. Active losartan (COZAAR) 50 mg tablet Take 100 mg by mouth daily. Active zolpidem (AMBIEN) 10 mg tablet Take 10 mg by mouth nightly as needed for Insomnia. Active acetaminophen (TYLENOL) 500 mg tablet Take 1,000 mg by mouth. Active cyclobenzaprine (FLEXERIL) 10 mg tablet Take 10 mg by mouth 3 times daily as needed. Active diclofenac sodium (VOLTAREN) 75 mg Tablet, Delayed Release (E.C.) Take 75 mg by mouth 2 times daily. Active hyaluronate sodium, stabilized (Monovisc) 88 mg/4 mL Syringe 88 mg by Intra-arTICu lar route one time only. 12/12/2022 Active Zepbound 2.5 mg/0.5 mL Pen Injector 2.5 mg. 04/30/2023 Active Active Problems No known active problems Encounters Date Type Department Care Team Description 07/15/2024 External Device Data [facility] ABSTRACTION Provider, Abstract 07/13/2024 External Device Data [facility] ABSTRACTION Provider, Abstract 06/29/2024 External Device Data [facility] ABSTRACTION Provider, Abstract 05/12/2024 External Device Data [facility] ABSTRACTION Provider, Abstract 05/04/2024 External Device Data [facility] ABSTRACTION Provider, Abstract 05/04/2024 External Device Data [facility] ABSTRACTION Provider, Abstract from Last 3 Months Family History Medical History Relation Name Comments Depression Father Alcohol abuse Mother Alcohol abuse Sister Relation Name Status Comments Father Mother Sister Social History Tobacco Use Types Packs/Day Years Used Date Smoking Tobacco: Some Days Cigarettes Started: 1979 Alcohol Use Standard Drinks/Week Comments Yes 0 (1 standard drink = 0.6 oz pur e alcohol) Comments No Sex and Gender Information Value Date Recorded Sex Assigned at Not on file 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 Gender Identity Not on file Sexual Orientation Not on file Last Filed Vital Signs Vital Sign Reading Time Taken Comments Blood Pressure 145/77 07/10/2023 11:55 AM CDT Pulse 90 07/10/2023 11:24 AM CDT Temperature 36.8 C (98.3 F) 10/09/2009 1:44 PM CDT Respiratory Rate 20 10/09/2009 5:20 PM CDT Oxygen Saturation 98% 07/10/2023 11:24 AM CDT Inhaled Oxygen Concentration - - Weight 161.5 kg (356 lb) 07/31/2023 11:04 AM CDT Height 156.5 cm (5' 1.6) 07/31/2023 11:04 AM CD T Body Mass Index 65.96 07/31/2023 11:04 AM CDT Plan of Treatment Health Maintenance Due Date Last Done Comments Pre-Diabetes and Diabetes Screening 1968 DTAP/TDAP/TD VACCINES (1 - Tdap) 10/12/1987 HEPATITIS B VACCINES (1 of 3 - 19+ 3-dose series) 09/24 HPV/Cotest (21-29) 1989 HPV/Cotest (30-65) 1998 BREAST CANCER SCREENING 2008 COLORECTAL SCREENING 2013 Colorectal Cancer Screening 2013 FIT-DNA Q 3 years 2013 FIT/FOBT Q 1 year 2013 Flex Sig/CT Colonography Q 5 years 2013 ZOSTER VACCINE (1 of 2) 2018 INFLUENZA VACCINE (#1) 2023 CERVICAL CANCER SCREENING 04/04/2025 PAP SMEAR 04/04/2025 04/04/2022 Insurance MEDICARE PART A AND B [facility] [employer] CHOICE Care Teams Manager Flight Operations Relationship Specialty Start Date End Date Melvin Haney MD [address] [place], [place] [phone] PCP - General Internal Medicine 09/20/21
--- OUTSIDE RECORDS SUMMARY | 2024-08-04 12:08 | XMS_ITS | Encounter Summary ---
Author Organization [facility] Address [address] [place] [address] Care Team Providers Care Director Traffic And Planning Name Role Phone Melvin Haney MD Primary Care Provider [phone] Encounter Details Date Type Department Care Team (Late st Contact Info) Description 10/10/2021 Abstract [facility] [place] [id number] [facility] [address] [place] [phone] Trish Wallace MD [address] [place] [address] Social History Tobacco Use Types Packs/Day Years Used Date Smoking Tobacco: Some Days Cigarettes Alcohol Use Standard Drinks/Week Comments Yes 0 (1 standard drink = 0.6 oz pur e alcohol) Comments No Sex and Gender Information Value Date Recorded Sex Assigned at Not on file 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 [address] [place] [phone] PCP - General Internal Medicine 09/20/21 documented as of this encounter
[2024-08-04 12:44] VITALS: BP 143/80; PULSE 87; RESP 18; O2SAT 97
== END 2024-08-04 12:47 | disposition home or self-care (01) ==
PROVIDERS: Emergency Provider Physician Assistant
DX: R06.00 Dyspnea, unspecified (principal); R07.89 Other chest pain; R35.0 Frequency of micturition; I10 Essential (primary) hypertension; E78.5 Hyperlipidemia, unspecified; E66.01 Morbid (severe) obesity due to excess calories; Z68.43 Body mass index [BMI] 50.0-59.9, adult; G62.9 Polyneuropathy, unspecified; F41.9 Anxiety disorder, unspecified; F32.A Depression, unspecified; Z86.73 Personal history of transient ischemic attack (TIA), and cerebral infarction without residual deficits; Z79.82 Long term (current) use of aspirin; Z79.899 Other long term (current) drug therapy; R94.31 Abnormal electrocardiogram [ECG] [EKG]
CPT/HCPCS: 36415; 71046; 80053; 81001; 83880; 84484; 85025; 85380; 85610; 85730; 87086; 93005; 96374; 99284; A9270; J2405